=== PATIENT | female | born 1955 | race Caucasian/White ===

== ENCOUNTER 2021-11-16 10:28 | Emergency (ER) | payer MEDICARE ==
[2021-11-16] MEDS ORDERED: KETOROLAC 60 MG/2 ML VIAL IM STA (12:14)
--- NOTE | 2021-11-16 12:17 | ED Physician Documentation ---
PD HPI BACK PAIN - Stated complaint Stated Complaint: BACK PX - Chief complaint Chief Complaint: Back Pain - History obtained from History obtained from: Patient - Additional information Additional information: 66-year-old woman with history of back problems, had an L3-L4 fusion and discectomy about 3 years ago. In July she fell and has had increasing back pain ever since. It is severe low back pain with pain radiating into the right leg and tingling in the right leg. There is no associated saddle anesthesia, fevers, or incontinence. She had an MRI a few weeks ago which demonstrated: 1. Large right paracentral disc extrusion with resultant severe canal stenosis at L4-L5 2. Severe bilateral foraminal stenosis at L4-L5 with flattening of the exiting nerve roots 3. Moderate bilateral L3-L4 and L1-L2 foraminal stenosis and moderate left L2- L3 foraminal stenosis 4. 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 Review of Systems Constitutional: denies: Fever, Chills Nose: reports: Reviewed and negative Cardiac: reports: Reviewed and negative Respiratory: reports: Reviewed and negative PD PAST MEDICAL HISTORY - Past Medical History Past Medical History: Yes - Past Surgical History Past Surgical History: Yes Ortho: Rotator cuff repair, Spine surgery - Present Medications Home Medications: Ambulatory Orders Medication Instructions Recorded Confirmed Oxycodone HCl/Acetaminophen 1 each PO Q4H PRN #30 tablet 11/16/21 [Oxycodone-Acetaminophen 10-300] - Allergies Allergies/Adverse Reactions: Allergies Allergy/AdvReac Type Severity Reaction Status Date / Time iodine Allergy Unknown Verified 11/16/21 10:56 vancomycin Allergy Unknown Verified 11/16/21 10:55 - Social History Does the pt smoke?: No Smoking Status: Never smoker - Immunizations Immunizations are current?: Yes PD ED PE NORMAL - Vitals Vital signs reviewed: Yes - General General: Alert and oriented X 3, No acute distress - HEENT HEENT: PERRL, EOMI - Back Back: No CVA TTP, Other (She has some tenderness of the low lumbar spine, she moves comfortably though. I am unable to check reflexes at the knees due to prior TKR bilaterally. Intact sensation throughout the legs. Normal gait.) - Neuro Neuro: Alert and oriented X 3, Normal speech Results - Vitals Vitals: Vital Signs - 24 hr 11/16/21 10:38 Temperature 37 C Heart Rate 91 Respiratory 20 Rate Blood Pressure 133/88 H O2 Saturation 99 PD MEDICAL DECISION MAKING - ED course ED course: 66-year-old woman presents with severe low back pain and MRI as above. She has an appointment with the back surgeon next week which is of course very appropriate but needs increase in pain management in the interim. There is no clinical sign of acute cauda equina syndrome and she walks normally with minimal findings on neurologic exam. I am prescribing a short course of short-acting opioid pain medication for this patient. I have reviewed the patients THERAPEUTIC SPECIALIST and no concerning findings were noted. I have discussed that the opioids are for short term therapy only, and will not be refilled from the ED. Departure - Departure Disposition: Home, Self Care Clinical Impression: Spinal stenosis, Lumbar radiculopathy Condition: Good Record reviewed to determine appropriate education?: Yes Instructions: ED Sciatica Prescriptions: Oxycodone HCl/Acetaminophen [Oxycodone-Acetaminophen 10-300] 1 each PO Q4H PRN #30 tablet PRN Reason: Pain Comments: Keep the appoint with the back surgeon next week, I sent your prescriptions electronically to [facility] in [place]. I am prescribing a short course of narcotic pain medication for you. These are potentially dangerous and addictive medications that should be used carefully. These medications may constipate you. Take an cgpu-yba-xnjepyo stool softener (docusate) twice daily with plenty of water while taking these medications. If you go 24 hours without a bowel movement, take [id number] miralax, per package instructions. Do not drink or drive while taking these medications. If you received narcotic or sedating medications while in the emergency department, do not drive for 24 hours. Store this medication in a safe, secure place and out of reach of children. It is a violation of federal law to give or sell this medication to another person or to use in a manner other than prescribed. The ED will not refill narcotic prescriptions, including prescriptions lost or stolen. To dispose of unwanted medications: 1. [facility] at [address] in [place] has a medication drop box. They accept prescription medications (in pill form) Friday through Friday 9:00 a.m. to 5:00 p.m. 2. The [facility] [employer] accepts prescription medications (in pill form only) for disposal year round. Call for more information. 3. Contact the [facility] for the next [facility] sponsored prescription drug collection event. , [phone], or [phone]; Note that many narcotic pain relievers also contain Tylenol/acetaminophen. Please ensure that your total dose of acetaminophen from all sources does not exceed 3 g (3000 mg) per day.
[2021-11-16 12:46] VITALS: BP 149/60
== END 2021-11-16 12:45 | disposition home or self-care (01) ==
LOC: ED 10:28
DX: M48.061 Spinal stenosis, lumbar region without neurogenic claudication (principal); M54.16 Radiculopathy, lumbar region
CPT/HCPCS: 96372; 99283

== ENCOUNTER 2021-11-20 10:29 | Emergency (ER) | payer MEDICARE ==
[2021-11-20 10:48] VITALS: BP 155/78
[2021-11-20] MEDS ORDERED: KETOROLAC 60 MG/2 ML VIAL IM STA (12:04)
--- NOTE | 2021-11-20 12:07 | ED Physician Documentation ---
History of Present Illness - Stated complaint Stated Complaint: BACK PX - Chief complaint Chief Complaint: Back Pain - Additonal information Additional information: 66-year-old female return to the emergency department with uncontrolled right lower back pain with radiation to the right leg. She does have a history of chronic back pain as well as fibromyalgia. She does have a history of an L3-4 discectomy and fusion about 3 years ago. She had a fall in July 2021 and since then she has had worsening back pain. She did have an MRI a few weeks ago And I have reviewed those results. She is also on high-dose gabapentin, anti-inflammatories and typically taking 3 5 mg oxycodone a day. She is scheduled to see back surgeon Dr. German in 48 hours time. She is hoping that a dose of Toradol can be given to her today as she found this effective a few days ago. No fevers. No saddle anesthesia, no loss of bowel or bladder function. Review of Systems Constitutional: denies: Fever, Chills Nose: reports: Reviewed and negative Throat: reports: Reviewed and negative Respiratory: reports: Reviewed and negative Skin: reports: Reviewed and negative Musculoskeletal: reports: Back pain Neurologic: reports: Reviewed and negative Psychiatric: reports: Reviewed and negative Endocrine: reports: Reviewed and negative Immunocompromised: reports: Reviewed and negative PD PAST MEDICAL HISTORY - Past Surgical History Past Surgical History: Yes Ortho: Rotator cuff repair, Spine surgery - Present Medications Home Medications: Ambulatory Orders Medication Instructions Recorded Confirmed Oxycodone HCl/Acetaminophen 1 each PO Q4H PRN #30 tablet 11/16/21 [Oxycodone-Acetaminophen 10-300] - Allergies Allergies/Adverse Reactions: Allergies Allergy/AdvReac Type Severity Reaction Status Date / Time iodine Allergy Unknown Verified 11/20/21 10:40 vancomycin Allergy Unknown Verified 11/20/21 10:40 - Social History Does the pt smoke?: No Smoking Status: Never smoker - Immunizations Immunizations are current?: Yes PD ED PE EXPANDED - General General: Alert, In Pain - Cardiac Cardiac: Regular Rate - Back Back: Straight leg raise + L, Other (Lower lumbar midline tenderness. No CVA tenderness. Reports reduced sensation right lateral leg. Positive straight leg exam on the right. Antalgic gait. Does not allow reflex testing given pain and inability to sit in appropriate position). No: CVA TTP right, CVA TTP left - Neuro Neuro: Alert and Oriented X 3, CNII-XII intact - GCS Eye Opening: Spontaneous Motor: Obeys Commands Verbal: Oriented Total: 15 Results - Vitals Vitals: Vital Signs - 24 hr 11/20/21 10:40 Temperature 36.8 C Heart Rate 86 Respiratory 19 Rate Blood Pressure 155/78 H O2 Saturation 100 Oxygen O2 Source Room air PD MEDICAL DECISION MAKING - ED course Complexity details: reviewed old records, reviewed results, re-evaluated patient, d/w patient ED course: 66-year-old female presents to the emergency department today again with low back pain. Recently underwent MRI imaging. I have reviewed those results. She is scheduled to see Dr. German back pain specialist/surgeon in 48 hours time. She was seen by my colleague about 72 hours ago and discharged with prescription for oxycodone. She states that it has not been helpful. She cannot find any position of comfort. On exam no cauda equina and she is ambulatory though she has an antalgic gait. She is not requesting repeat opiate dosing but is requesting Toradol as she found that helpful. We discussed that there were limited interventions available for further pain management in the emergency department she understands this. She will be discharged home. States that she has a 0 gravity chair being delivered tonight which she is hopeful will improve her symptoms until she is able to see the back pain specialist. Otherwise emergent return precautions discussed Departure - Departure Disposition: 01 Home, Self Care Clinical Impression: Chronic low back pain with sciatica Qualifiers: Back pain laterality: unspecified Sciatica laterality: sciatica of right side Qualified Code(s): M54.41 - Lumbago with sciatica, right side; G89.29 - Other chronic pain Condition: Stable Record reviewed to determine appropriate education?: Yes Comments: Laly I hope that you are finding some relief of the symptoms with the Toradol. You can continue to use the oxycodone at home. I do recommend that you continue very close follow-up within the next [address] German. If at any point you have loss of sensation in your genital area, lose control of the ability to control your bowel or bladder function then you should return immediately to the ER.
== END 2021-11-20 12:49 | disposition home or self-care (01) ==
LOC: ED 10:29
DX: M54.41 Lumbago with sciatica, right side (principal)
CPT/HCPCS: 96372; 99282; 99283

== ENCOUNTER 2022-07-31 16:33 | Emergency (ER) | payer MEDICARE ==
[2022-07-31 16:42] VITALS: BP 161/89
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
--- OUTSIDE RECORDS SUMMARY | 2022-07-31 17:06 | EXTERNAL MEDICAL SUMMARY RPT | Continuity of Care Document ---
:1955 Author Organization [facility] Address [address] [place] [address] Phone Care Team Providers Name Role Phone Unavailable Unavailable Unavailable Filipe Montes Unavailable Unavailable Allergies and Intolerances date description facility type (no date) Iodinated Contrast Media [facility] ([facility] (no date) rifampin [facility] (unknown) (no date) vancomycin [facility] (unknown) Encounters No information. Functional Status No information. Immunizations No information. Medications date description facility 2022-06-03 00:00 Promethazine [facility] Problems date description facility 2022-06-04 14:31 Noninfective gastroenteritis and coliti s, [facility] unspecified Procedures No information. Results/Labs test date author facility value unit interpret ation Result panel 1 (unknown[facility] (no [facility] Result panel 2 (unknown) (no date) (unknown[facility]) Result panel 3 (unknown) (no date) (unknown[facility] Result panel 4 (unknown) (no date) (unknown[facility]) Result panel 5 (unknown) (no date) (unknown[facility] Result panel 6 (unknown) (no date) (unknown[facility]) Result panel 7 (unknown) (no date) (unknown[facility]) Result panel 8 (unknown) (no date) (unknown[facility]) Result panel 9 (unknown) (no date) (unknown[facility]) Result panel 10 (unknown) (no date) (unknown[facility]) Result panel 11 (unknown) (no date) (unknown[facility]) Result panel 12 (unknown) (no date) (unknown[facility]) Result panel 13 (unknown) (no date) (unknown[facility]) Result panel 14 (unknown) (no date) (unknown[facility]) Result panel 15 (unknown) (no date) (unknown[facility]) Result panel 16 (unknown) (no date) (unknown[facility]) Result panel 17 (unknown) (no date) (unknown[facility]) Result panel 18 (unknown) (no date) (unknown[facility]) Result panel 19 (unknown) (no date) (unknown[facility]) Result panel 20 (unknown) (no date) (unknown[facility]) Result panel 21 (unknown) (no date) (unknown[facility]) Result panel 22 (unknown) (no date) (unknown[facility]) Result panel 23 (unknown) (no date) (unknown[facility]) Result panel 24 (unknown) (no date) (unknown[facility]) Result panel 25 (unknown) (no date) (unknown[facility]) Result panel 26 (unknown) (no date) (unknown[facility]) Result panel 27 (unknown) (no date) (unknown[facility]) Result panel 28 (unknown) (no date) (unknown[facility]) Result panel 29 (unknown) (no date) (unknown[facility]) Result panel 30 (unknown) (no date) (unknown[facility]) Result panel 31 (unknown) (no date) (unknown[facility]) Result panel 32 (unknown) (no date) (unknown[facility]) Result panel 33 (unknown) (no date) (unknown[facility]) Result panel 34 (unknown) (no date) (unknown[facility]) Result panel 35 (unknown) (no date) (unknown[facility]) Result panel 36 (unknown) (no date) (unknown[facility]) Result panel 37 (unknown) (no date) (unknown[facility]) Result panel 38 (unknown) (no date) (unknown[facility]) Result panel 39 (unknown) (no date) (unknown[facility]) Result panel 40 (unknown) (no date) (unknown[facility]) Result panel 41 (unknown) (no date) (unknown[facility]) Result panel 42 (unknown) (no date) (unknown[facility]) Result panel 43 (unknown) (no date) (unknown[facility]) Result panel 44 (unknown) (no date) (unknown[facility]) Result panel 45 (unknown) (no date) (unknown[facility]) Result panel 46 (unknown) (no date) (unknown[facility]) Result panel 47 (unknown) (no date) (unknown[facility]) Result panel 48 (unknown) (no date) (unknown[facility]) Result panel 49 (unknown) (no date) (unknown[facility]) Result panel 50 (unknown) (no date) (unknown[facility]) Result panel 51 (unknown) (no date) (unknown) [facility]) Result panel 52 (unknown) (no date) (unknown[facility]) Result panel 53 (unknown) (no date) (unknown) [facility]) Result panel 54 (unknown) (no date) (unknown[facility]) Result panel 55 (unknown) (no date) (unknown[facility]) Result panel 56 (unknown) (no date) (unknown[facility]) Result panel 57 (unknown) (no date) (unknown[facility]) Result panel 58 (unknown) (no date) (unknown[facility]) Result panel 59 (unknown) (no date) (unknown[facility]) Result panel 60 (unknown) (no date) (unknown[facility]) Result panel 61 (unknown) (no date) (unknown[facility]) Result panel 62 (unknown) (no date) (unknown[facility]) Result panel 63 (unknown) (no date) (unknown[facility]) Result panel 64 (unknown) (no date) (unknown[facility]) Result panel 65 (unknown) (no date) (unknown[facility]) Result panel 66 (unknown) (no date) (unknown) [facility]) Result panel 67 (unknown) (no date) (unknown) [facility]) Result panel 68 (unknown) (no date) (unknown[facility]) Result panel 69 (unknown) (no date) (unknown[facility]) Result panel 70 (unknown) (no date) (unknown[facility]) Result panel 71 (unknown) (no date) (unknown) [facility]) Result panel 72 (unknown) (no date) (unknown[facility]) Result panel 73 (unknown) (no date) (unknown[facility]) Result panel 74 (unknown) (no date) (unknown[facility]) Result panel 75 (unknown) (no date) (unknown[facility]) Result panel 76 (unknown) (no date) (unknown[facility]) Result panel 77 (unknown) (no date) (unknown[facility]) Result panel 78 (unknown) (no date) (unknown) [facility]) Result panel 79 (unknown) (no date) (unknown) [facility]) Result panel 80 (unknown) (no date) (unknown[facility]) Result panel 81 (unknown) (no date) (unknown[facility]) Result panel 82 (unknown) (no date) (unknown[facility]) Result panel 83 (unknown) (no date) (unknown[facility]) Result panel 84 (unknown) (no date) (unknown) [facility]) Result panel 85 (unknown) (no date) (unknown[facility]) Result panel 86 (unknown) (no date) (unknown[facility]) Result panel 87 (unknown) (no date) (unknown[facility]) Result panel 88 (unknown) (no date) (unknown[facility]) Result panel 89 (unknown) (no date) (unknown[facility]) Result panel 90 (unknown) (no date) (unknown[facility]) Result panel 91 (unknown) (no date) (unknown) [facility]) Result panel 92 (unknown) (no date) (unknown[facility]) Result panel 93 (unknown) (no date) (unknown) [facility]) Result panel 94 (unknown) (no date) (unknown[facility]) Result panel 95 (unknown) (no date) (unknown[facility]) Result panel 96 (unknown) (no date) (unknown[facility]) Result panel 97 (unknown) (no date) (unknown[facility]) Result panel 98 (unknown) (no date) (unknown[facility]) Result panel 99 (unknown) (no date) (unknown[facility]) Result panel 100 (unknown) (no date) (unknown[facility]) Result panel 101 (unknown) (no date) (unknown[facility]) Result panel 102 (unknown) (no date) (unknown[facility]) Result panel 103 (unknown) (no date) (unknown[facility]) Result panel 104 (unknown) (no date) (unknown[facility]) Result panel 105 (unknown) (no date) (unknown[facility]) Result panel 106 (unknown) (no date) (unknown[facility]) Result panel 107 (unknown) (no date) (unknown[facility]) Result panel 108 (unknown) (no date) (unknown[facility]) Result panel 109 (unknown) (no date) (unknown[facility]) Result panel 110 (unknown) (no date) (unknown[facility]) Result panel 111 (unknown) (no date) (unknown) [facility]) Result panel 112 (unknown) (no date) (unknown[facility]) Result panel 113 (unknown) (no date) (unknown[facility]) Result panel 114 (unknown) (no date) (unknown[facility]) Result panel 115 (unknown) (no date) (unknown[facility]) Result panel 116 (unknown) (no date) (unknown) [facility]) Result panel 117 (unknown) (no date) (unknown) [facility]) Result panel 118 (unknown) (no date) (unknown[facility]) Result panel 119 (unknown) (no date) (unknown) [facility]) Result panel 120 (unknown) (no date) (unknown[facility]) Result panel 121 (unknown) (no date) (unknown[facility]) Result panel 122 (unknown) (no date) (unknown[facility]) Result panel 123 (unknown) (no date) (unknown[facility]) Result panel 124 (unknown) (no date) (unknown[facility]) Result panel 125 (unknown) (no date) (unknown[facility]) Result panel 126 (unknown) (no date) (unknown[facility]) Result panel 127 (unknown) (no date) (unknown[facility]) Result panel 128 (unknown) (no date) (unknown[facility]) Result panel 129 (unknown) (no date) (unknown[facility]) Result panel 130 (unknown) (no date) (unknown[facility]) Result panel 131 (unknown) (no date) (unknown[facility]) Result panel 132 (unknown) (no date) (unknown[facility]) Result panel 133 (unknown) (no date) (unknown[facility]) Result panel 134 (unknown) (no date) (unknown[facility]) Result panel 135 (unknown) (no date) (unknown[facility]) Result panel 136 (unknown) (no date) (unknown[facility]) Result panel 137 (unknown) (no date) (unknown[facility]) Result panel 138 (unknown) (no date) (unknown[facility]) Result panel 139 (unknown) (no date) (unknown[facility]) Result panel 140 (unknown) (no date) (unknown[facility]) Result panel 141 (unknown) (no date) (unknown[facility]) Result panel 142 (unknown) (no date) (unknown[facility]) Result panel 143 (unknown) (no date) (unknown[facility]) Result panel 144 (unknown) (no date) (unknown[facility]) Result panel 145 (unknown) (no date) (unknown) [facility]) Result panel 146 (unknown) (no date) (unknown) [facility]) Result panel 147 (unknown) (no date) (unknown) [facility]) Result panel 148 (unknown) (no date) (unknown) [facility]) Result panel 149 (unknown) (no date) (unknown) [facility]) Result panel 150 (unknown) (no date) (unknown) [facility]) Result panel 151 (unknown) (no date) (unknown) [facility]) Result panel 152 (unknown) (no date) (unknown) [facility]) Result panel 153 (unknown) (no date) (unknown) [facility]) Result panel 154 (unknown) (no date) (unknown) [facility]) Result panel 155 (unknown) (no date) (unknown) [facility]) Result panel 156 (unknown) (no date) (unknown) [facility]) Result panel 157 (unknown) (no date) (unknown) [facility]) Result panel 158 (unknown) (no date) (unknown) [facility]) Result panel 159 (unknown) (no date) (unknown) [facility]) Result panel 160 (unknown) (no date) (unknown) [facility]) Result panel 161 (unknown) (no date) (unknown) [facility]) Result panel 162 (unknown) (no date) (unknown) [facility]) Result panel 163 (unknown) (no date) (unknown) [facility]) Result panel 164 (unknown) (no date) (unknown) [facility]) Result panel 165 (unknown) (no date) (unknown) [facility]) Result panel 166 (unknown) (no date) (unknown) [facility]) Result panel 167 (unknown) (no date) (unknown) [facility]) Result panel 168 (unknown) (no date) (unknown) [facility]) Result panel 169 (unknown) (no date) (unknown) [facility]) Result panel 170 (unknown) (no date) (unknown) [facility]) Result panel 171 (unknown) (no date) (unknown) [facility]) Result panel 172 (unknown) (no date) (unknown) [facility]) Result panel 173 (unknown) (no date) (unknown) [facility]) Result panel 174 (unknown) (no date) (unknown) [facility]) Result panel 175 (unknown) (no (unknown) (unknown) (no value) (units (unk nown) date) unknown) (unknown) (no (unknown) (unknown) #120 caps (units (unkn own) date) unknown) (unknown) (no (unknown) (unknown) (Benadryl) (units (unk nown) date) unknown) (unknown) (no (unknown) (unknown) (Lexapro) (units (unkn own) date) unknown) (unknown) (no (unknown) (unknown) 06/03/22 09:14 (units (unknown) date) unknown) (unknown) (no (unknown) (unknown) 06/03/22 09:15 (units (unknown) date) unknown) (unknown) (no (unknown) (unknown) 06/03/22 (units (unkno wn) date) unknown) (unknown) (no (unknown) (unknown) [id number] (units (unkno wn) date) unknown) (unknown) (no (unknown) (unknown) 12/17/21 (units (unkno wn) date) unknown) (unknown) (no (unknown) (unknown) 09:09 (units (unkno wn) date) unknown) (unknown) (no (unknown) (unknown) 1 tab PO BID-TID (units (unknown) date) unknown) (unknown) (no (unknown) (unknown) 1,000 mg PO Q6H (units (unknown) date) PRN (Reason: Pain) unknown) (unknown) (no (unknown) (unknown) 1-2 tabs (5-10mg) (units (unknown) date) q 4H unknown) (unknown) (no (unknown) (unknown) 10 mg PO BEDTIME (units (unknown) date) PRN (Reason: unknown) insomnia) Qty: 14 0RF (unknown) (no (unknown) (unknown) 10 mg PO BEDTIME (units (unknown) date) unknown) (unknown) (no (unknown) (unknown) 100 mg PO BID PRN (units (unknown) date) (Reason: unknown) constipation) Qty: 60 2RF (unknown) (no (unknown) (unknown) 150 mg PO BEDTIME (units (unknown) date) unknown) (unknown) (no (unknown) (unknown) 150 mg PO QAM (units ( unknown) date) unknown) (unknown) (no (unknown) (unknown) 2 mg PO Q3H PRN (units (unknown) date) (Reason: pain, unknown) severe) Qty: 30 0RF (unknown) (no (unknown) (unknown) 20 mg PO DAILY (units (unknown) date) unknown) (unknown) (no (unknown) (unknown) 25 mg PO Q4-6H (units (unknown) date) PRN (Reason: unknown) Nausea) (unknown) (no (unknown) (unknown) 25 mg PO Q4HR PRN (units (unknown) date) (Reason: Muscle unknown) Spasm) Qty: 120 1RF (unknown) (no (unknown) (unknown) 40 mg PO BEDTIME (units (unknown) date) unknown) (unknown) (no (unknown) (unknown) 40 mg PO DAILY (units (unknown) date) unknown) (unknown) (no (unknown) (unknown) 400 mg PO (units (unkn own) date) SEEINSTR unknown) (unknown) (no (unknown) (unknown) 400mg qam, 400mg (units (unknown) date) qpm, 800mg bedtime unknown) (unknown) (no (unknown) (unknown) 5 mg PO Q4H PRN (units (unknown) date) (Reason: pain, unknown) moderate) Qty: 60 0RF (unknown) (no (unknown) (unknown) 50 - 100 mg PO (units (unknown) date) BEDTIME PRN unknown) (Reason: Sleep) (unknown) (no (unknown) (unknown) 500 mg PO BID (units ( unknown) date) unknown) (unknown) (no (unknown) (unknown) 500 mg PO TID PRN (units (unknown) date) (Reason: Muscle unknown) Spasm) Qty: 60 0RF (unknown) (no (unknown) (unknown) 9 mg PO QAM (units (un known) date) unknown) (unknown) (no (unknown) (unknown) Age/Sex: 66 / F (units (unknown) date) unknown) (unknown) (no (unknown) (unknown) Allergies (units (unkn own) date) unknown) (unknown) (no (unknown) (unknown) Allergy/AdvReac (units (unknown) date) Type Severity unknown) Reaction Status Date / Time (unknown) (no (unknown) (unknown) Anxiety (units (unkno wn) date) unknown) (unknown) (no (unknown) (unknown) Bedside Urine (units ( unknown) date) Bilirubin - unknown) Negative (unknown) (no (unknown) (unknown) Bedside Urine (units ( unknown) date) Glucose Negative unknown) (unknown) (no (unknown) (unknown) Bedside Urine (units ( unknown) date) Ketone - Negative unknown) (unknown) (no (unknown) (unknown) Bedside Urine (units ( unknown) date) Leukocytes - unknown) Negative (unknown) (no (unknown) (unknown) Bedside Urine (units ( unknown) date) Nitrite - Negative unknown) (unknown) (no (unknown) (unknown) Bedside Urine (units ( unknown) date) Occult Blood - unknown) Negative (unknown) (no (unknown) (unknown) Bedside Urine (units ( unknown) date) Protein +/- 15 unknown) (unknown) (no (unknown) (unknown) Bedside Urine (units ( unknown) date) Urobilinogen - unknown) Negative (unknown) (no (unknown) (unknown) Bedside Urine pH (units (unknown) date) 7 unknown) (unknown) (no (unknown) (unknown) Blood Pressure (units (unknown) date) 132/79 06/03/22 unknown) 09:09 (unknown) (no (unknown) (unknown) Blood Pressure (units (unknown) date) 132/79 unknown) (unknown) (no (unknown) (unknown) Chief complaint: (units (unknown) date) Nausea/Vomiting/Di unknown) arrhea (unknown) (no (unknown) (unknown) Colitis, (units (unkno wn) date) nonspecific unknown) (unknown) (no (unknown) (unknown) Complete Blood (units (unknown) date) Count AUTO DIFF unknown) Stat (unknown) (no (unknown) (unknown) Comprehensive (units ( unknown) date) Metabolic Panel unknown) Stat (unknown) (no (unknown) (unknown) Course (units (unkno wn) date) unknown) (unknown) (no (unknown) (unknown) : 1955 (units (unknown) date) Acct:[id number] unknown) (unknown) (no (unknown) (unknown) Date of Service: (units (unknown) date) 06/03/22 unknown) (unknown) (no (unknown) (unknown) Departure (units (unkn own) date) unknown) (unknown) (no (unknown) (unknown) Depression (units (unk nown) date) unknown) (unknown) (no (unknown) (unknown) Discharge Plan (units (unknown) date) unknown) (unknown) (no (unknown) (unknown) Documented By: KB (units (unknown) date) unknown) (unknown) (no (unknown) (unknown) ED Orders (units (unkn own) date) unknown) (unknown) (no (unknown) (unknown) EKG-12 Lead Stat (units (unknown) date) unknown) (unknown) (no (unknown) (unknown) ER Physician: (units ( unknown) date) Rene Brooks unknown) D.O. (unknown) (no (unknown) (unknown) Easy bruisability (units (unknown) date) unknown) (unknown) (no (unknown) (unknown) Emergency Report (units (unknown) date) unknown) (unknown) (no (unknown) (unknown) Esterase (units (unkno wn) date) unknown) (unknown) (no (unknown) (unknown) Exam (units (unkno wn) date) unknown) (unknown) (no (unknown) (unknown) Fibromyalgia (units (u nknown) date) unknown) (unknown) (no (unknown) (unknown) General (units (unkno wn) date) unknown) (unknown) (no (unknown) (unknown) HLD (units (unkno wn) date) (hyperlipidemia) unknown) (unknown) (no (unknown) (unknown) HPI - (units (unkno wn) date) Nausea/Vomiting/Di unknown) arrhea (unknown) (no (unknown) (unknown) History of (units (unk nown) date) arthroplasty of unknown) right knee (-2003) (unknown) (no (unknown) (unknown) History of ear (units (unknown) date) surgery unknown) (unknown) (no (unknown) (unknown) History of lumbar (units (unknown) date) spinal fusion unknown) (03/2019) (unknown) (no (unknown) (unknown) History of nasal (units (unknown) date) surgery unknown) (unknown) (no (unknown) (unknown) History of (units (unk nown) date) revision of total unknown) replacement of left knee joint (05/2008) (unknown) (no (unknown) (unknown) History of (units (unk nown) date) revision of total unknown) replacement of right knee joint () (unknown) (no (unknown) (unknown) Home Medications (units (unknown) date) unknown) (unknown) (no (unknown) (unknown) Hx of arthroscopy (units (unknown) date) of right knee unknown) (unknown) (no (unknown) (unknown) Hx of laminectomy (units (unknown) date) () unknown) (unknown) (no (unknown) (unknown) Hx of repair of (units (unknown) date) right rotator cuff unknown) (unknown) (no (unknown) (unknown) 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) unknown) (unknown) (no (unknown) (unknown) Initial Vital (units ( unknown) date) Signs unknown) (unknown) (no (unknown) (unknown) Initial Vital (units ( unknown) date) Signs: unknown) (unknown) (no (unknown) (unknown) Iodinated (units (unkn own) date) Contrast Media unknown) Allergy Mild Rash Verified 12/17/21 12:14 (unknown) (no (unknown) (unknown) [facility] (units (unknown) date) [address]) [place] [address] (unknown) (no (unknown) (unknown) Lab Data (units (unkno wn) date) unknown) (unknown) (no (unknown) (unknown) Label Comments: (units (unknown) date) unknown) (unknown) (no (unknown) (unknown) Labs: (units (unkno wn) date) unknown) (unknown) (no (unknown) (unknown) Last Admin: (units (un known) date) 06/03/22 09:32 unknown) Dose: 4 mg (unknown) (no (unknown) (unknown) Lipase Stat (units (un known) date) unknown) (unknown) (no (unknown) (unknown) Loose left total (units (unknown) date) knee arthroplasty unknown) (2003) (unknown) (no (unknown) (unknown) MDM - (units (unkno wn) date) Nausea/Vomiting/Di unknown) arrhea (unknown) (no (unknown) (unknown) MRSA (methicillin (units (unknown) date) resistant unknown) Staphylococcus aureus) (unknown) (no (unknown) (unknown) Allison Vasquez, (units (unknown) date) PA-C [Primary Care unknown) Provider] (unknown) (no (unknown) (unknown) Medical History (units (unknown) date) (Reviewed 12/24/21 unknown) @ 01:23 by Desean Jiménez MD) (unknown) (no (unknown) (unknown) Medication (units (unk nown) date) Instructions unknown) Recorded Confirmed (unknown) (no (unknown) (unknown) Medication (units (unk nown) date) Instructions unknown) Recorded (unknown) (no (unknown) (unknown) Mode of arrival: (units (unknown) date) Ambulatory unknown) (unknown) (no (unknown) (unknown) No Action (units (unkn own) date) unknown) (unknown) (no (unknown) (unknown) Ondansetron HCl (units (unknown) date) (Ondansetron 4 Mg unknown) Odt) 4 mg PO NOW PRN (unknown) (no (unknown) (unknown) Ondansetron HCl (units (unknown) date) (Ondansetron 4 unknown) Mg/2 Ml Inj) 4 mg IV NOW PRN (unknown) (no (unknown) (unknown) Ordered: (units (unkno wn) date) unknown) (unknown) (no (unknown) (unknown) Orders (units (unkno wn) date) unknown) (unknown) (no (unknown) (unknown) Oxygen Delivery (units (unknown) date) Method 06/03/22 unknown) 09:09 (unknown) (no (unknown) (unknown) Oxygen Delivery (units (unknown) date) Method Room Air unknown) (unknown) (no (unknown) (unknown) PRN Reason: (units (un known) date) Nausea And unknown) Vomiting (unknown) (no (unknown) (unknown) PTSD (units (unkno wn) date) (post-traumatic unknown) stress disorder) (unknown) (no (unknown) (unknown) Patient History (units (unknown) date) unknown) (unknown) (no (unknown) (unknown) Patient: (units (unkno wn) date) Laly Miranda unknown) MR#: [id number] (unknown) (no (unknown) (unknown) Prescriptions: (units (unknown) date) unknown) (unknown) (no (unknown) (unknown) Previous Rx's (units ( unknown) date) unknown) (unknown) (no (unknown) (unknown) Pulse Oximetry (units (unknown) date) 100 06/03/22 09:09 unknown) (unknown) (no (unknown) (unknown) Pulse Oximetry (units (unknown) date) 100 unknown) (unknown) (no (unknown) (unknown) Pulse Rate 85 (units ( unknown) date) 06/03/22 09:09 unknown) (unknown) (no (unknown) (unknown) Pulse Rate 85 (units ( unknown) date) unknown) (unknown) (no (unknown) (unknown) Referrals: (units (unk nown) date) unknown) (unknown) (no (unknown) (unknown) Related Data (units (u nknown) date) unknown) (unknown) (no (unknown) (unknown) Respiratory Rate (units (unknown) date) 18 06/03/22 09:09 unknown) (unknown) (no (unknown) (unknown) Respiratory Rate (units (unknown) date) 18 unknown) (unknown) (no (unknown) (unknown) Rx Instructions: (units (unknown) date) unknown) (unknown) (no (unknown) (unknown) Sciatica (units (unkno wn) date) unknown) (unknown) (no (unknown) (unknown) Signed By: (units (unk nown) date) unknown) (unknown) (no (unknown) (unknown) Smoking Status: (units (unknown) date) Former smoker unknown) (unknown) (no (unknown) (unknown) Social History (units (unknown) date) (Reviewed 12/23/21 unknown) @ 20:22 by Amena Aviles DO) (unknown) (no (unknown) (unknown) Source: patient (units (unknown) date) unknown) (unknown) (no (unknown) (unknown) Spinal stenosis (units (unknown) date) unknown) (unknown) (no (unknown) (unknown) Stated complaint: (units (unknown) date) throwing up since unknown) (unknown) (no (unknown) (unknown) Substance Use (units ( unknown) date) Type: marijuana unknown) (unknown) (no (unknown) (unknown) Surgical History (units (unknown) date) (Reviewed 12/24/21 unknown) @ 01:23 by Desean Jiménez MD) (unknown) (no (unknown) (unknown) Temperature 98 F (units (unknown) date) 06/03/22 09:09 unknown) (unknown) (no (unknown) (unknown) Temperature 98 F (units (unknown) date) unknown) (unknown) (no (unknown) (unknown) Time Seen by (units (u nknown) date) Provider: 06/03/22 unknown) 10:36 (unknown) (no (unknown) (unknown) Urine Dip (units (unkn own) date) unknown) (unknown) (no (unknown) (unknown) Urine Microscopic (units (unknown) date) Stat unknown) (unknown) (no (unknown) (unknown) Urine Specific (units (unknown) date) Quentin 1.015 unknown) (unknown) (no (unknown) (unknown) Vital Signs - 8 (units (unknown) date) hr unknown) (unknown) (no (unknown) (unknown) Vital Signs (units (un known) date) unknown) (unknown) (no (unknown) (unknown) Vital signs: (units (u nknown) date) unknown) (unknown) (no (unknown) (unknown) acetaminophen 500 (units (unknown) date) mg Capsule unknown) (unknown) (no (unknown) (unknown) acetaminophen 500 (units (unknown) date) mg capsule 1,000 unknown) mg PO Q6H PRN Pain 12/07/21 12/23/21 (unknown) (no (unknown) (unknown) alcohol intake (units (unknown) date) frequency: unknown) holidays/special occasions only (unknown) (no (unknown) (unknown) alcohol intake: (units (unknown) date) former unknown) (unknown) (no (unknown) (unknown) budesonide 3 mg 9 (units (unknown) date) mg PO QAM 12/07/21 unknown) 12/23/21 (unknown) (no (unknown) (unknown) budesonide 3 mg (units (unknown) date) Capsule,Delayed,Ex unknown) tend.Release (unknown) (no (unknown) (unknown) bupropion HCl 300 (units (unknown) date) mg 24 hr tablet, unknown) 150 mg PO QAM 12/07/21 12/23/21 (unknown) (no (unknown) (unknown) bupropion HCl 300 (units (unknown) date) mg Tablet Extended unknown) Release 24 Hr (unknown) (no (unknown) (unknown) caps (units (unkno wn) date) unknown) (unknown) (no (unknown) (unknown) capsule,delayed (units (unknown) date) release unknown) (unknown) (no (unknown) (unknown) capsule,delayed,e (units (unknown) date) xtended release unknown) (unknown) (no (unknown) (unknown) diphenhydramine (units (unknown) date) HCl 25 mg capsule unknown) 50 - 100 mg PO BEDTIME PRN Sleep 12/10/21 (unknown) (no (unknown) (unknown) diphenhydramine (units (unknown) date) HCl [Benadryl] 25 unknown) mg Capsule (unknown) (no (unknown) (unknown) docusate sodium (units (unknown) date) 100 mg Capsule unknown) (unknown) (no (unknown) (unknown) docusate sodium (units (unknown) date) 100 mg capsule 100 unknown) mg PO BID PRN constipation #60 12/20/21 (unknown) (no (unknown) (unknown) escitalopram (units (u nknown) date) oxalate 20 mg unknown) tablet 20 mg PO DAILY 12/07/21 12/23/21 (unknown) (no (unknown) (unknown) escitalopram (units (u nknown) date) oxalate [Lexapro] unknown) 20 mg Tablet (unknown) (no (unknown) (unknown) esomeprazole (units (u nknown) date) magnesium 20 mg 40 unknown) mg PO DAILY 12/07/21 12/17/21 (unknown) (no (unknown) (unknown) esomeprazole (units (u nknown) date) magnesium 20 mg unknown) Capsule,Delayed Release(Dr/Ec) (unknown) (no (unknown) (unknown) extended release (units (unknown) date) unknown) (unknown) (no (unknown) (unknown) gabapentin 400 mg (units (unknown) date) Capsule unknown) (unknown) (no (unknown) (unknown) gabapentin 400 mg (units (unknown) date) capsule 400 mg PO unknown) SEEINSTR 12/07/21 12/23/21 (unknown) (no (unknown) (unknown) household (units (unkn own) date) members: none unknown) (unknown) (no (unknown) (unknown) hydromorphone 2 (units (unknown) date) mg Tablet unknown) (unknown) (no (unknown) (unknown) hydromorphone 2 (units (unknown) date) mg tablet 2 mg PO unknown) Q3H PRN pain, severe #30 12/20/21 (unknown) (no (unknown) (unknown) hydroxyzine (units (un known) date) pamoate 25 mg unknown) Capsule (unknown) (no (unknown) (unknown) hydroxyzine (units (un known) date) pamoate 25 mg unknown) capsule 25 mg PO Q4HR PRN Muscle Spasm 12/20/21 (unknown) (no (unknown) (unknown) methocarbamol 500 (units (unknown) date) mg Tablet unknown) (unknown) (no (unknown) (unknown) methocarbamol 500 (units (unknown) date) mg tablet 500 mg unknown) PO TID PRN Muscle Spasm #60 12/20/21 (unknown) (no (unknown) (unknown) mg tablet (units (unkn own) date) unknown) (unknown) (no (unknown) (unknown) oxycodone 5 mg (units (unknown) date) tablet 5 mg PO Q4H unknown) PRN pain, moderate #60 12/20/21 (unknown) (no (unknown) (unknown) oxycodone 5 mg (units (unknown) date) tablet unknown) (unknown) (no (unknown) (unknown) oxycodone-acetami (units (unknown) date) nophen 10 mg-325 1 unknown) tab PO BID-TID 12/07/21 12/23/21 (unknown) (no (unknown) (unknown) oxycodone-acetami (units (unknown) date) nophen 10-325 mg unknown) Tablet (unknown) (no (unknown) (unknown) promethazine 25 (units (unknown) date) mg Tablet unknown) (unknown) (no (unknown) (unknown) promethazine 25 (units (unknown) date) mg tablet 25 mg PO unknown) Q4-6H PRN Nausea 12/07/21 12/23/21 (unknown) (no (unknown) (unknown) rifampin Allergy (units (unknown) date) Mild Rash Verified unknown) 12/17/21 12:14 (unknown) (no (unknown) (unknown) simvastatin 40 mg (units (unknown) date) Tablet unknown) (unknown) (no (unknown) (unknown) simvastatin 40 mg (units (unknown) date) tablet 40 mg PO unknown) BEDTIME 12/07/21 12/23/21 (unknown) (no (unknown) (unknown) tabs (units (unkno wn) date) unknown) (unknown) (no (unknown) (unknown) trazodone 150 mg (units (unknown) date) Tablet unknown) (unknown) (no (unknown) (unknown) trazodone 150 mg (units (unknown) date) tablet 150 mg PO unknown) BEDTIME 12/07/21 12/23/21 (unknown) (no (unknown) (unknown) valacyclovir 500 (units (unknown) date) mg Tablet unknown) (unknown) (no (unknown) (unknown) valacyclovir 500 (units (unknown) date) mg tablet 500 mg unknown) PO BID 12/07/21 12/23/21 (unknown) (no (unknown) (unknown) vancomycin (units (unk nown) date) Allergy Mild Rash unknown) Verified 12/17/21 12:14 (unknown) (no (unknown) (unknown) zolpidem 10 mg (units (unknown) date) tablet (Ambien) 10 unknown) mg PO BEDTIME 12/07/21 12/17/21 (unknown) (no (unknown) (unknown) zolpidem 10 mg (units (unknown) date) tablet 10 mg PO unknown) BEDTIME PRN insomnia #14 12/20/21 (unknown) (no (unknown) (unknown) zolpidem 10 mg (units (unknown) date) tablet unknown) (unknown) (no (unknown) (unknown) zolpidem [Ambien] (units (unknown) date) 10 mg Tablet unknown) Result panel 176 (unknown) (no date) (unknown) (unknown) 0-1 /HPF (units (unkn own) unknown) (unknown) (no date) (unknown) (unknown) 1 (units (unkn own) unknown) (unknown) (no date) (unknown) (unknown) 1-5/HPF (units (unkn own) unknown) (unknown) (no date) (unknown) (unknown) Cult Not (units (unkn own) Indicated unknown) (unknown) (no date) (unknown) (unknown) Few (2-10) (units (un known) unknown) (unknown) (no date) (unknown) (unknown) None Seen (units (unk nown) unknown) (unknown) (no date) (unknown) (unknown) None Seen (units (unk nown) unknown) Result panel 177 (unknown) (no date) (unknown) (unknown) 0 /ul (unkn own) (unknown) (no date) (unknown) (unknown) 0.4 % (unkn own) (unknown) (no date) (unknown) (unknown) 1.7 % (unkn own) (unknown) (no date) (unknown) (unknown) 100 /ul (unkn own) (unknown) (no date) (unknown) (unknown) 11.7 g/dl (unkn own) (unknown) (no date) (unknown) (unknown) 1400 /ul (unkn own) (unknown) (no date) (unknown) (unknown) 16.3 % (unkn own) (unknown) (no date) (unknown) (unknown) 16.6 % (unkn own) (unknown) (no date) (unknown) (unknown) 27.0 pg (unkn own) (unknown) (no date) (unknown) (unknown) 282 x10 3/ul (unkn own) (unknown) (no date) (unknown) (unknown) 32.9 % (unkn own) (unknown) (no date) (unknown) (unknown) 35.7 % (unkn own) (unknown) (no date) (unknown) (unknown) 4.34 x10 6/ul (unkn own) (unknown) (no date) (unknown) (unknown) 6000 /ul (unkn own) (unknown) (no date) (unknown) (unknown) 700 /ul (unkn own) (unknown) (no date) (unknown) (unknown) 72.9 % (unkn own) (unknown) (no date) (unknown) (unknown) 8.2 x10 3/ul (unkn own) (unknown) (no date) (unknown) (unknown) 8.4 % (unkn own) (unknown) (no date) (unknown) (unknown) 82.3 fl (unkn own) Result panel 178 (unknown) (no date) (unknown) (unknown) > 60 ml/min (unkn own) (unknown) (no date) (unknown) (unknown) > 60 ml/min (unkn own) (unknown) (no date) (unknown) (unknown) 0.4 mg/dl (unkn own) (unknown) (no date) (unknown) (unknown) 0.86 mg/dl (unkn own) (unknown) (no date) (unknown) (unknown) 1.6 (units (unkn own) unknown) (unknown) (no date) (unknown) (unknown) 100 mmol/l (unkn own) (unknown) (no date) (unknown) (unknown) 104 mg/dl (unkn own) (unknown) (no date) (unknown) (unknown) 104 mg/dl (unkn own) (unknown) (no date) (unknown) (unknown) 11 mg/dl (unkn own) (unknown) (no date) (unknown) (unknown) 12.8 (units (unkn own) unknown) (unknown) (no date) (unknown) (unknown) 13 iu/l (unkn own) (unknown) (no date) (unknown) (unknown) 137 mmol/l (unkn own) (unknown) (no date) (unknown) (unknown) 2.7 g/dl (unkn own) (unknown) (no date) (unknown) (unknown) 23 iu/l (unkn own) (unknown) (no date) (unknown) (unknown) 27 mmol/l (unkn own) (unknown) (no date) (unknown) (unknown) 4.1 mmol/l (unkn own) (unknown) (no date) (unknown) (unknown) 4.3 g/dl (unkn own) (unknown) (no date) (unknown) (unknown) 51 u/l (unkn own) (unknown) (no date) (unknown) (unknown) 56 u/l (unkn own) (unknown) (no date) (unknown) (unknown) 7.0 g/dl (unkn own) (unknown) (no date) (unknown) (unknown) 78 u/l (unkn own) (unknown) (no date) (unknown) (unknown) 9.3 mg/dl (unkn own) (unknown) (no date) (unknown) (unknown) Test not % (unkn own) performed (unknown) (no date) (unknown) (unknown) Test not % (unkn own) performed (unknown) (no date) (unknown) (unknown) Test not ng/ml (unkn own) performed (unknown) (no date) (unknown) (unknown) Test not ng/ml (unkn own) performed Result panel 179 (unknown) (no date) (unknown) (unknown) < 0.012 ng/ml (unkn own) (unknown) (no date) (unknown) (unknown) < 0.012 ng/ml (unkn own) (unknown) (no date) (unknown) (unknown) 51 u/l (unkn own) (unknown) (no date) (unknown) (unknown) Test not % (unkn own) performed (unknown) (no date) (unknown) (unknown) Test not % (unkn own) performed (unknown) (no date) (unknown) (unknown) Test not ng/ml (unkn own) performed (unknown) (no date) (unknown) (unknown) Test not ng/ml (unkn own) performed Result panel 180 (unknown) (no (unknown) (unknown) (no value) (units (unk nown) date) unknown) (unknown) (no (unknown) (unknown) #120 caps (units (unkn own) date) unknown) (unknown) (no (unknown) (unknown) <Electronically (units (unknown) date) signed by Rene unknownRanjit Brooks D.O.> (unknown) (no (unknown) (unknown) (Benadryl) (units (unk nown) date) unknown) (unknown) (no (unknown) (unknown) (Lexapro) (units (unkn own) date) unknown) (unknown) (no (unknown) (unknown) 06/03/22 06/03/22 (units (unknown) date) 06/03/22 unknown) Range/Units (unknown) (no (unknown) (unknown) 06/03/22 10:30 (units (unknown) date) unknown) (unknown) (no (unknown) (unknown) 06/03/22 13:12 (units (unknown) date) unknown) (unknown) (no (unknown) (unknown) 06/03/22 1916 (units ( unknown) date) unknown) (unknown) (no (unknown) (unknown) 06/03/22 (units (unkno wn) date) Range/Units unknown) (unknown) (no (unknown) (unknown) 06/03/22 (units (unkno wn) date) unknown) (unknown) (no (unknown) (unknown) [id number] (units (unkno wn) date) unknown) (unknown) (no (unknown) (unknown) 12/17/21 (units (unkno wn) date) unknown) (unknown) (no (unknown) (unknown) 09:15 10:30 10:30 (units (unknown) date) unknown) (unknown) (no (unknown) (unknown) 1 tab PO BID-TID (units (unknown) date) unknown) (unknown) (no (unknown) (unknown) 1,000 mg PO Q6H (units (unknown) date) PRN (Reason: Pain) unknown) (unknown) (no (unknown) (unknown) 1-2 tabs (5-10mg) (units (unknown) date) q 4H unknown) (unknown) (no (unknown) (unknown) 10 mg PO BEDTIME (units (unknown) date) PRN (Reason: unknown) insomnia) Qty: 14 0RF (unknown) (no (unknown) (unknown) 10 mg PO BEDTIME (units (unknown) date) unknown) (unknown) (no (unknown) (unknown) 100 mg PO BID PRN (units (unknown) date) (Reason: unknown) constipation) Qty: 60 2RF (unknown) (no (unknown) (unknown) 10:30 (units (unkno wn) date) unknown) (unknown) (no (unknown) (unknown) 12:16 06/03/22 (units (unknown) date) unknown) (unknown) (no (unknown) (unknown) 12:30 06/03/22 (units (unknown) date) unknown) (unknown) (no (unknown) (unknown) 12:30 (units (unkno wn) date) unknown) (unknown) (no (unknown) (unknown) 13:00 06/03/22 (units (unknown) date) unknown) (unknown) (no (unknown) (unknown) 13:00 (units (unkno wn) date) unknown) (unknown) (no (unknown) (unknown) 150 mg PO BEDTIME (units (unknown) date) unknown) (unknown) (no (unknown) (unknown) 150 mg PO QAM (units ( unknown) date) unknown) (unknown) (no (unknown) (unknown) 2 mg PO Q3H PRN (units (unknown) date) (Reason: pain, unknown) severe) Qty: 30 0RF (unknown) (no (unknown) (unknown) 20 mg PO DAILY (units (unknown) date) unknown) (unknown) (no (unknown) (unknown) 25 mg PO Q4-6H PRN (units (unknown) date) (Reason: Nausea) unknown) (unknown) (no (unknown) (unknown) 25 mg PO Q4-6H PRN (units (unknown) date) (Reason: nausea and unknown) vomiting) Qty: 14 0RF (unknown) (no (unknown) (unknown) 25 mg PO Q4HR PRN (units (unknown) date) (Reason: Muscle unknown) Spasm) Qty: 120 1RF (unknown) (no (unknown) (unknown) 40 mg PO BEDTIME (units (unknown) date) unknown) (unknown) (no (unknown) (unknown) 40 mg PO DAILY (units (unknown) date) unknown) (unknown) (no (unknown) (unknown) 400 mg PO SEEINSTR (units (unknown) date) unknown) (unknown) (no (unknown) (unknown) 400mg qam, 400mg (units (unknown) date) qpm, 800mg bedtime unknown) (unknown) (no (unknown) (unknown) 5 mg PO Q4H PRN (units (unknown) date) (Reason: pain, unknown) moderate) Qty: 60 0RF (unknown) (no (unknown) (unknown) 50 - 100 mg PO (units (unknown) date) BEDTIME PRN unknown) (Reason: Sleep) (unknown) (no (unknown) (unknown) 500 mg PO BID (units ( unknown) date) unknown) (unknown) (no (unknown) (unknown) 500 mg PO TID PRN (units (unknown) date) (Reason: Muscle unknown) Spasm) Qty: 60 0RF (unknown) (no (unknown) (unknown) 66-year-old female (units (unknown) date) who arrives the unknown) emergency department today stating that she (unknown) (no (unknown) (unknown) 9 mg PO QAM (units (un known) date) unknown) (unknown) (no (unknown) (unknown) ALT (<35) IU/L (units (unknown) date) unknown) (unknown) (no (unknown) (unknown) ALT 13 (<35) IU/L (units (unknown) date) unknown) (unknown) (no (unknown) (unknown) AST (14-36) IU/L (units (unknown) date) unknown) (unknown) (no (unknown) (unknown) AST 23 (14-36) (units (unknown) date) IU/L unknown) (unknown) (no (unknown) (unknown) Acetaminophen (units ( unknown) date) (Acetaminophen 325 unknown) Mg Tablet) 650 mg PO NOW ONE (unknown) (no (unknown) (unknown) Activity (units (unkno wn) date) Restrictions/Additi unknown) onal Instructions: (unknown) (no (unknown) (unknown) Admin: 06/03/22 (units (unknown) date) 11:05 Dose: 1,000 unknown) mls/hr (unknown) (no (unknown) (unknown) Age/Sex: 66 / F (units (unknown) date) unknown) (unknown) (no (unknown) (unknown) Albumin (3.5-5.0) (units (unknown) date) g/dL unknown) (unknown) (no (unknown) (unknown) Albumin 4.3 (units (un known) date) (3.5-5.0) g/dL unknown) (unknown) (no (unknown) (unknown) Albumin/Globulin (units (unknown) date) Ratio (1.0-2.8) unknown) (unknown) (no (unknown) (unknown) Albumin/Globulin (units (unknown) date) Ratio 1.6 (1.0-2.8) unknown) (unknown) (no (unknown) (unknown) Alkaline (units (unkno wn) date) Phosphatase unknown) (38-126) U/L (unknown) (no (unknown) (unknown) Alkaline (units (unkno wn) date) Phosphatase 78 unknown) (38-126) U/L (unknown) (no (unknown) (unknown) Allergies (units (unkn own) date) unknown) (unknown) (no (unknown) (unknown) Allergy/AdvReac (units (unknown) date) Type Severity unknown) Reaction Status Date / Time (unknown) (no (unknown) (unknown) Anxiety (units (unkno wn) date) unknown) (unknown) (no (unknown) (unknown) Attestation: I (units (unknown) date) reviewed the unknown) patient's lab results. (unknown) (no (unknown) (unknown) Auscultation: (units ( unknown) date) clear to unknown) auscultation bilaterally (unknown) (no (unknown) (unknown) BUN (7-17) mg/dL (units (unknown) date) unknown) (unknown) (no (unknown) (unknown) BUN 11 (7-17) (units ( unknown) date) mg/dL unknown) (unknown) (no (unknown) (unknown) BUN/Creatinine (units (unknown) date) Ratio (6-22) unknown) (unknown) (no (unknown) (unknown) BUN/Creatinine (units (unknown) date) Ratio 12.8 (6-22) unknown) (unknown) (no (unknown) (unknown) Baso # (Auto) (units ( unknown) date) (0-100) /uL unknown) (unknown) (no (unknown) (unknown) Baso # (Auto) 0 (units (unknown) date) (0-100) /uL unknown) (unknown) (no (unknown) (unknown) Baso % (Auto) (units ( unknown) date) (0-2) % unknown) (unknown) (no (unknown) (unknown) Baso % (Auto) 0.4 (units (unknown) date) (0-2) % unknown) (unknown) (no (unknown) (unknown) Bedside Urine (units ( unknown) date) Bilirubin - unknown) Negative (unknown) (no (unknown) (unknown) Bedside Urine (units ( unknown) date) Glucose Negative unknown) (unknown) (no (unknown) (unknown) Bedside Urine (units ( unknown) date) Ketone - Negative unknown) (unknown) (no (unknown) (unknown) Bedside Urine (units ( unknown) date) Leukocytes - unknown) Negative (unknown) (no (unknown) (unknown) Bedside Urine (units ( unknown) date) Nitrite - Negative unknown) (unknown) (no (unknown) (unknown) Bedside Urine (units ( unknown) date) Occult Blood - unknown) Negative (unknown) (no (unknown) (unknown) Bedside Urine (units ( unknown) date) Protein +/- 15 unknown) (unknown) (no (unknown) (unknown) Bedside Urine (units ( unknown) date) Urobilinogen - unknown) Negative (unknown) (no (unknown) (unknown) Bedside Urine pH 7 (units (unknown) date) unknown) (unknown) (no (unknown) (unknown) Blood Pressure (units (unknown) date) 132/79 06/03/22 unknown) 09:09 (unknown) (no (unknown) (unknown) Blood Pressure (units (unknown) date) 142/74 H unknown) (unknown) (no (unknown) (unknown) Blood Pressure (units (unknown) date) 143/67 H 130/72 unknown) (unknown) (no (unknown) (unknown) CK-MB (CK-2) Rel (units (unknown) date) Index TNP unknown) (unknown) (no (unknown) (unknown) CK-MB (CK-2) Rel (units (unknown) date) Index unknown) (unknown) (no (unknown) (unknown) CK-MB (CK-2) TNP (units (unknown) date) unknown) (unknown) (no (unknown) (unknown) CK-MB (CK-2) (units (u nknown) date) unknown) (unknown) (no (unknown) (unknown) Calcium (8.4-10.2) (units (unknown) date) mg/dL unknown) (unknown) (no (unknown) (unknown) Calcium 9.3 (units (un known) date) (8.4-10.2) mg/dL unknown) (unknown) (no (unknown) (unknown) Carbon Dioxide (units (unknown) date) (22-32) mmol/L unknown) (unknown) (no (unknown) (unknown) Carbon Dioxide 27 (units (unknown) date) (22-32) mmol/L unknown) (unknown) (no (unknown) (unknown) Cardio (units (unkno wn) date) unknown) (unknown) (no (unknown) (unknown) Chief complaint: (units (unknown) date) Nausea/Vomiting/Argenis unknown) rrhea (unknown) (no (unknown) (unknown) Chloride (98-107) (units (unknown) date) mmol/L unknown) (unknown) (no (unknown) (unknown) Chloride 100 (units (u nknown) date) (98-107) mmol/L unknown) (unknown) (no (unknown) (unknown) Clinical (units (unkno wn) date) Impression: unknown) (unknown) (no (unknown) (unknown) Colitis, (units (unkno wn) date) nonspecific unknown) (unknown) (no (unknown) (unknown) Complete Blood (units (unknown) date) Count AUTO DIFF unknown) Stat (unknown) (no (unknown) (unknown) Comprehensive (units ( unknown) date) Metabolic Panel unknown) Stat (unknown) (no (unknown) (unknown) Const (units (unkno wn) date) unknown) (unknown) (no (unknown) (unknown) Constitutional (units (unknown) date) unknown) (unknown) (no (unknown) (unknown) Constitutional: (units (unknown) date) Reports system unknown) reviewed and no additional complaints, except as (unknown) (no (unknown) (unknown) Course (units (unkno wn) date) unknown) (unknown) (no (unknown) (unknown) Creatinine (units (unk nown) date) (0.52-1.04) mg/dL unknown) (unknown) (no (unknown) (unknown) Creatinine 0.86 (units (unknown) date) (0.52-1.04) mg/dL unknown) (unknown) (no (unknown) (unknown) : 1955 (units (unknown) date) Acct:[id number] unknown) (unknown) (no (unknown) (unknown) Date of Service: (units (unknown) date) 06/03/22 unknown) (unknown) (no (unknown) (unknown) Departure (units (unkn own) date) unknown) (unknown) (no (unknown) (unknown) Depression (units (unk nown) date) unknown) (unknown) (no (unknown) (unknown) Discharge Plan (units (unknown) date) unknown) (unknown) (no (unknown) (unknown) Discontinued (units (u nknown) date) Medications unknown) (unknown) (no (unknown) (unknown) Documented By: KB (units (unknown) date) unknown) (unknown) (no (unknown) (unknown) Documented By: MLM (units (unknown) date) unknown) (unknown) (no (unknown) (unknown) ED Orders (units (unkn own) date) unknown) (unknown) (no (unknown) (unknown) ER Physician: (units ( unknown) date) Rene Brooks D.O. unknown) (unknown) (no (unknown) (unknown) Easy bruisability (units (unknown) date) unknown) (unknown) (no (unknown) (unknown) Effort + (units (unkno wn) date) Inspection: normal unknown) respiratory effort (unknown) (no (unknown) (unknown) Emergency Report (units (unknown) date) unknown) (unknown) (no (unknown) (unknown) Eos # (Auto) (units (u nknown) date) (0-450) /uL unknown) (unknown) (no (unknown) (unknown) Eos # (Auto) 100 (units (unknown) date) (0-450) /uL unknown) (unknown) (no (unknown) (unknown) Eos % (Auto) (2-4) (units (unknown) date) % unknown) (unknown) (no (unknown) (unknown) Eos % (Auto) 1.7 L (units (unknown) date) (2-4) % unknown) (unknown) (no (unknown) (unknown) Esterase (units (unkno wn) date) unknown) (unknown) (no (unknown) (unknown) Estimated GFR > 60 (units (unknown) date) (>60) mL/min unknown) (unknown) (no (unknown) (unknown) Estimated GFR (units ( unknown) date) (>60) mL/min unknown) (unknown) (no (unknown) (unknown) Exam (units (unkno wn) date) unknown) (unknown) (no (unknown) (unknown) Fibromyalgia (units (u nknown) date) unknown) (unknown) (no (unknown) (unknown) GI (units (unkno wn) date) unknown) (unknown) (no (unknown) (unknown) Gastrointestinal (units (unknown) date) unknown) (unknown) (no (unknown) (unknown) Gastrointestinal: (units (unknown) date) Reports system unknown) reviewed and no additional complaints, except (unknown) (no (unknown) (unknown) General (units (unkno wn) date) unknown) (unknown) (no (unknown) (unknown) General: (units (unkno wn) date) cooperative, unknown) comfortable and No ill appearing (unknown) (no (unknown) (unknown) General: no rashes (units (unknown) date) or lesions noted unknown) (unknown) (no (unknown) (unknown) General: patient (units (unknown) date) alert, patient unknown) awake and moves all extremities (unknown) (no (unknown) (unknown) Genitourinary (units ( unknown) date) unknown) (unknown) (no (unknown) (unknown) Genitourinary: (units (unknown) date) Reports system unknown) reviewed and no additional complaints, except as (unknown) (no (unknown) (unknown) Globulin (1.7-4.1) (units (unknown) date) g/dL unknown) (unknown) (no (unknown) (unknown) Globulin 2.7 (units (u nknown) date) (1.7-4.1) g/dL unknown) (unknown) (no (unknown) (unknown) Glucose (80-110) (units (unknown) date) mg/dL unknown) (unknown) (no (unknown) (unknown) Glucose 104 (units (un known) date) (80-110) mg/dL unknown) (unknown) (no (unknown) (unknown) HENMT (units (unkno wn) date) unknown) (unknown) (no (unknown) (unknown) HLD (units (unkno wn) date) (hyperlipidemia) unknown) (unknown) (no (unknown) (unknown) HPI - (units (unkno wn) date) Nausea/Vomiting/Argenis unknown) rrhea (unknown) (no (unknown) (unknown) HPI Narrative: (units (unknown) date) unknown) (unknown) (no (unknown) (unknown) Hct (36-46) % (units ( unknown) date) unknown) (unknown) (no (unknown) (unknown) Hct 35.7 L (36-46) (units (unknown) date) % unknown) (unknown) (no (unknown) (unknown) Head: normal to (units (unknown) date) inspection and unknown) normocephalic (unknown) (no (unknown) (unknown) Hematologic/Lympha (units (unknown) date) tic unknown) (unknown) (no (unknown) (unknown) Hgb (12.0-16.0) (units (unknown) date) g/dL unknown) (unknown) (no (unknown) (unknown) Hgb 11.7 L (units (unk nown) date) (12.0-16.0) g/dL unknown) (unknown) (no (unknown) (unknown) History of Present (units (unknown) date) Illness unknown) (unknown) (no (unknown) (unknown) History of (units (unk nown) date) arthroplasty of unknown) right knee (-2003) (unknown) (no (unknown) (unknown) History of ear (units (unknown) date) surgery unknown) (unknown) (no (unknown) (unknown) History of lumbar (units (unknown) date) spinal fusion unknown) (03/2019) (unknown) (no (unknown) (unknown) History of nasal (units (unknown) date) surgery unknown) (unknown) (no (unknown) (unknown) History of (units (unk nown) date) revision of total unknown) replacement of left knee joint (05/2008) (unknown) (no (unknown) (unknown) History of (units (unk nown) date) revision of total unknown) replacement of right knee joint () (unknown) (no (unknown) (unknown) Home Medications (units (unknown) date) unknown) (unknown) (no (unknown) (unknown) Hx of arthroscopy (units (unknown) date) of right knee unknown) (unknown) (no (unknown) (unknown) Hx of laminectomy (units (unknown) date) () unknown) (unknown) (no (unknown) (unknown) Hx of repair of (units (unknown) date) right rotator cuff unknown) (unknown) (no (unknown) (unknown) I recommend that (units (unknown) date) you continue to unknown) take all of your medications as directed. Keep (unknown) (no (unknown) (unknown) 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) unknown) (unknown) (no (unknown) (unknown) Initial Vital (units ( unknown) date) Signs unknown) (unknown) (no (unknown) (unknown) Initial Vital (units ( unknown) date) Signs: unknown) (unknown) (no (unknown) (unknown) Inspection: normal (units (unknown) date) to inspection unknown) (unknown) (no (unknown) (unknown) Instructions: DI (units (unknown) date) for Vomiting -- unknown) Adult (unknown) (no (unknown) (unknown) Integumentary/[place] (units (unknown) date) sts unknown) (unknown) (no (unknown) (unknown) Iodinated Contrast (units (unknown) date) Media Allergy Mild unknown) Rash Verified 12/17/21 12:14 (unknown) (no (unknown) (unknown) [facility] (units (unknown) date) [address] unknown) [place] [address] (unknown) (no (unknown) (unknown) Lab Data (units (unkno wn) date) unknown) (unknown) (no (unknown) (unknown) Lab Results (units (un known) date) unknown) (unknown) (no (unknown) (unknown) Label Comments: (units (unknown) date) unknown) (unknown) (no (unknown) (unknown) Labs: (units (unkno wn) date) unknown) (unknown) (no (unknown) (unknown) Last Admin: (units (un known) date) 06/03/22 09:32 unknown) Dose: 4 mg (unknown) (no (unknown) (unknown) Last Admin: (units (un known) date) 06/03/22 11:07 unknown) Dose: 650 mg (unknown) (no (unknown) (unknown) Last Infusion: (units (unknown) date) 06/03/22 12:19 unknown) Dose: 0 mls/hr (unknown) (no (unknown) (unknown) Limitations: no (units (unknown) date) limitations unknown) (unknown) (no (unknown) (unknown) Lipase (23-300) (units (unknown) date) U/L unknown) (unknown) (no (unknown) (unknown) Lipase 56 (23-300) (units (unknown) date) U/L unknown) (unknown) (no (unknown) (unknown) Lipase Stat (units (un known) date) unknown) (unknown) (no (unknown) (unknown) Loose left total (units (unknown) date) knee arthroplasty unknown) (2003) (unknown) (no (unknown) (unknown) Lymph # (Auto) (units (unknown) date) (2717-6918) /uL unknown) (unknown) (no (unknown) (unknown) Lymph # (Auto) (units (unknown) date) 1400 (0349-9200) unknown) /uL (unknown) (no (unknown) (unknown) Lymph % (Auto) (units (unknown) date) (25-40) % unknown) (unknown) (no (unknown) (unknown) Lymph % (Auto) (units (unknown) date) 16.6 L (25-40) % unknown) (unknown) (no (unknown) (unknown) MCH (26-34) PG (units (unknown) date) unknown) (unknown) (no (unknown) (unknown) MCH 27.0 (26-34) (units (unknown) date) PG unknown) (unknown) (no (unknown) (unknown) MCHC (30-36) % (units (unknown) date) unknown) (unknown) (no (unknown) (unknown) MCHC 32.9 (30-36) (units (unknown) date) % unknown) (unknown) (no (unknown) (unknown) MCV (80-100) fL (units (unknown) date) unknown) (unknown) (no (unknown) (unknown) MCV 82.3 (80-100) (units (unknown) date) fL unknown) (unknown) (no (unknown) (unknown) MDM - (units (unkno wn) date) Nausea/Vomiting/Argenis unknown) rrhea (unknown) (no (unknown) (unknown) MDM Narrative (units ( unknown) date) unknown) (unknown) (no (unknown) (unknown) MRSA (methicillin (units (unknown) date) resistant unknown) Staphylococcus aureus) (unknown) (no (unknown) (unknown) Allison Vasquez, (units (unknown) date) PA-C [Primary Care unknown) Provider] (unknown) (no (unknown) (unknown) Medical History (units (unknown) date) (Reviewed 06/03/22 unknown) @ 19:13 by Rene Brooks DO) (unknown) (no (unknown) (unknown) Medical decision (units (unknown) date) making narrative: unknown) (unknown) (no (unknown) (unknown) Medication (units (unk nown) date) Instructions unknown) Recorded Confirmed (unknown) (no (unknown) (unknown) Medication (units (unk nown) date) Instructions unknown) Recorded (unknown) (no (unknown) (unknown) Mode of arrival: (units (unknown) date) Ambulatory unknown) (unknown) (no (unknown) (unknown) [place] # (Auto) (units ( unknown) date) (0-900) /uL unknown) (unknown) (no (unknown) (unknown) [place] # (Auto) 700 (units (unknown) date) (0-900) /uL unknown) (unknown) (no (unknown) (unknown) [place] % (Auto) (units ( unknown) date) (3-14) % unknown) (unknown) (no (unknown) (unknown) [place] % (Auto) 8.4 (units (unknown) date) (3-14) % unknown) (unknown) (no (unknown) (unknown) Musculoskeletal (units (unknown) date) unknown) (unknown) (no (unknown) (unknown) Musculoskeletal: (units (unknown) date) Reports system unknown) reviewed and no additional complaints, except as (unknown) (no (unknown) (unknown) Neuro (units (unkno wn) date) unknown) (unknown) (no (unknown) (unknown) Neut # (Auto) (units ( unknown) date) (0075-7421) /uL unknown) (unknown) (no (unknown) (unknown) Neut # (Auto) 6000 (units (unknown) date) (8224-4697) /uL unknown) (unknown) (no (unknown) (unknown) Neut % (Auto) (units ( unknown) date) (50-75) % unknown) (unknown) (no (unknown) (unknown) Neut % (Auto) 72.9 (units (unknown) date) (50-75) % unknown) (unknown) (no (unknown) (unknown) New (units (unkno wn) date) unknown) (unknown) (no (unknown) (unknown) No Action (units (unkn own) date) unknown) (unknown) (no (unknown) (unknown) On Anticoagulants: (units (unknown) date) No unknown) (unknown) (no (unknown) (unknown) Ondansetron HCl (units (unknown) date) (Ondansetron 4 Mg unknown) Odt) 4 mg PO NOW PRN (unknown) (no (unknown) (unknown) Ondansetron HCl (units (unknown) date) (Ondansetron 4 Mg/2 unknown) Ml Inj) 4 mg IV NOW PRN (unknown) (no (unknown) (unknown) Ordered: (units (unkno wn) date) unknown) (unknown) (no (unknown) (unknown) Orders (units (unkno wn) date) unknown) (unknown) (no (unknown) (unknown) Oxygen Delivery (units (unknown) date) Method 06/03/22 unknown) 09:09 (unknown) (no (unknown) (unknown) PRN Reason: Nausea (units (unknown) date) And Vomiting unknown) (unknown) (no (unknown) (unknown) PTSD (units (unkno wn) date) (post-traumatic unknown) stress disorder) (unknown) (no (unknown) (unknown) Palpation: soft (units (unknown) date) and No tender unknown) (unknown) (no (unknown) (unknown) Patient (units (unkno wn) date) Disposition: Home unknown) (unknown) (no (unknown) (unknown) Patient History (units (unknown) date) unknown) (unknown) (no (unknown) (unknown) Patient is (units (unk nown) date) well-appearing. Has unknown) unremarkable vital signs and unremarkable labs (unknown) (no (unknown) (unknown) Patient: (units (unkno wn) date) Laly Miranda unknown) MR#: [id number] (unknown) (no (unknown) (unknown) Plt Count (units (unkn own) date) (150-400) X103/uL unknown) (unknown) (no (unknown) (unknown) Plt Count 282 (units ( unknown) date) (150-400) X103/uL unknown) (unknown) (no (unknown) (unknown) Potassium (units (unkn own) date) (3.4-5.1) mmol/L unknown) (unknown) (no (unknown) (unknown) Potassium 4.1 (units ( unknown) date) (3.4-5.1) mmol/L unknown) (unknown) (no (unknown) (unknown) Prescriptions: (units (unknown) date) unknown) (unknown) (no (unknown) (unknown) Previous Rx's (units ( unknown) date) unknown) (unknown) (no (unknown) (unknown) Pulse Oximetry 100 (units (unknown) date) 06/03/22 09:09 unknown) (unknown) (no (unknown) (unknown) Pulse Oximetry 96 (units (unknown) date) unknown) (unknown) (no (unknown) (unknown) Pulse Oximetry 97 (units (unknown) date) unknown) (unknown) (no (unknown) (unknown) Pulse Rate 79 (units ( unknown) date) unknown) (unknown) (no (unknown) (unknown) Pulse Rate 85 (units ( unknown) date) 06/03/22 09:09 unknown) (unknown) (no (unknown) (unknown) Pulse Rate 87 (units ( unknown) date) unknown) (unknown) (no (unknown) (unknown) RBC (4.0-5.2) (units ( unknown) date) X106/uL unknown) (unknown) (no (unknown) (unknown) RBC 4.34 (4.0-5.2) (units (unknown) date) X106/uL unknown) (unknown) (no (unknown) (unknown) RDW (11.6-14.8) % (units (unknown) date) unknown) (unknown) (no (unknown) (unknown) RDW 16.3 H (units (unk nown) date) (11.6-14.8) % unknown) (unknown) (no (unknown) (unknown) Rate: regular rate (units (unknown) date) unknown) (unknown) (no (unknown) (unknown) Referrals: (units (unk nown) date) unknown) (unknown) (no (unknown) (unknown) Related Data (units (u nknown) date) unknown) (unknown) (no (unknown) (unknown) Resp (units (unkno wn) date) unknown) (unknown) (no (unknown) (unknown) Respiratory Rate (units (unknown) date) 18 06/03/22 09:09 unknown) (unknown) (no (unknown) (unknown) Return to the (units ( unknown) date) emergency unknown) department for new symptoms (unknown) (no (unknown) (unknown) Review of Systems (units (unknown) date) unknown) (unknown) (no (unknown) (unknown) Rhythm: regular (units (unknown) date) rhythm unknown) (unknown) (no (unknown) (unknown) Rx Instructions: (units (unknown) date) unknown) (unknown) (no (unknown) (unknown) Sciatica (units (unkno wn) date) unknown) (unknown) (no (unknown) (unknown) Signed By: (units (unk nown) date) unknown) (unknown) (no (unknown) (unknown) Skin (units (unkno wn) date) unknown) (unknown) (no (unknown) (unknown) Skin/Breast: (units (u nknown) date) Reports system unknown) reviewed and no additional complaints, except as (unknown) (no (unknown) (unknown) Smoking Status: (units (unknown) date) Former smoker unknown) (unknown) (no (unknown) (unknown) Social History (units (unknown) date) (Reviewed 06/03/22 unknown) @ 19:13 by Rene Brooks DO) (unknown) (no (unknown) (unknown) Sodium (137-145) (units (unknown) date) mmol/L unknown) (unknown) (no (unknown) (unknown) Sodium 137 (units (unk nown) date) (137-145) mmol/L unknown) (unknown) (no (unknown) (unknown) Sodium Chloride (units (unknown) date) (Normal Saline unknown) 0.9%) 1,000 mls @ 1,000 mls/hr IV BOLUS ONE (unknown) (no (unknown) (unknown) Source: patient (units (unknown) date) unknown) (unknown) (no (unknown) (unknown) Spinal stenosis (units (unknown) date) unknown) (unknown) (no (unknown) (unknown) Stand Alone Forms: (units (unknown) date) Patient Portal/API unknown) (unknown) (no (unknown) (unknown) Stated complaint: (units (unknown) date) throwing up since unknown) (unknown) (no (unknown) (unknown) Stop: 06/03/22 (units (unknown) date) 11:04 unknown) (unknown) (no (unknown) (unknown) Stop: 06/03/22 (units (unknown) date) 11:40 unknown) (unknown) (no (unknown) (unknown) Substance Use (units ( unknown) date) Type: marijuana unknown) (unknown) (no (unknown) (unknown) Surgical History (units (unknown) date) (Reviewed 12/24/21 unknown) @ 01:23 by Desean Jiménez MD) (unknown) (no (unknown) (unknown) Temperature 98 F (units (unknown) date) 06/03/22 09:09 unknown) (unknown) (no (unknown) (unknown) Time Seen by (units (u nknown) date) Provider: 06/03/22 unknown) 10:36 (unknown) (no (unknown) (unknown) Total Bilirubin (units (unknown) date) (0.2-1.3) mg/dL unknown) (unknown) (no (unknown) (unknown) Total Bilirubin (units (unknown) date) 0.4 (0.2-1.3) mg/dL unknown) (unknown) (no (unknown) (unknown) Total Creatine (units (unknown) date) Kinase (30-135) U/L unknown) (unknown) (no (unknown) (unknown) Total Creatine (units (unknown) date) Kinase 51 (30-135) unknown) U/L (unknown) (no (unknown) (unknown) Total Protein (units ( unknown) date) (6.3-8.2) g/dL unknown) (unknown) (no (unknown) (unknown) Total Protein 7.0 (units (unknown) date) (6.3-8.2) g/dL unknown) (unknown) (no (unknown) (unknown) Troponin + CK (units ( unknown) date) Cardiac Panel Stat unknown) (unknown) (no (unknown) (unknown) Troponin I < 0.012 (units (unknown) date) (0.01-0.034) ng/mL unknown) (unknown) (no (unknown) (unknown) Troponin I (units (unk nown) date) (0.01-0.034) ng/mL unknown) (unknown) (no (unknown) (unknown) Ur Culture (units (unk nown) date) Indicated? Cult not unknown) indicated (unknown) (no (unknown) (unknown) Ur Culture (units (unk nown) date) Indicated? unknown) (unknown) (no (unknown) (unknown) Ur Squamous Epith (units (unknown) date) Cells (0-5/HPF) unknown) (unknown) (no (unknown) (unknown) Ur Squamous Epith (units (unknown) date) Cells 0-1 /hpf unknown) (0-5/HPF) (unknown) (no (unknown) (unknown) Urine Bacteria (units (unknown) date) (None) unknown) (unknown) (no (unknown) (unknown) Urine Bacteria Few (units (unknown) date) (2-10) H (None) unknown) (unknown) (no (unknown) (unknown) Urine Culture Stat (units (unknown) date) unknown) (unknown) (no (unknown) (unknown) Urine Dip (units (unkn own) date) unknown) (unknown) (no (unknown) (unknown) Urine Mucus (units (un known) date) (Negative) unknown) (unknown) (no (unknown) (unknown) Urine Mucus 1+ H (units (unknown) date) (Negative) unknown) (unknown) (no (unknown) (unknown) Urine RBC (units (unkn own) date) (0-5/HPF) unknown) (unknown) (no (unknown) (unknown) Urine RBC None (units (unknown) date) seen (0-5/HPF) unknown) (unknown) (no (unknown) (unknown) Urine Specific (units (unknown) date) [place] 1.015 unknown) (unknown) (no (unknown) (unknown) Urine WBC (units (unkn own) date) (0-5/HPF) unknown) (unknown) (no (unknown) (unknown) Urine WBC 1-5/hpf (units (unknown) date) (0-5/HPF) unknown) (unknown) (no (unknown) (unknown) Vital Signs - 8 hr (units (unknown) date) unknown) (unknown) (no (unknown) (unknown) Vital Signs (units (un known) date) unknown) (unknown) (no (unknown) (unknown) Vital signs: (units (u nknown) date) unknown) (unknown) (no (unknown) (unknown) Vomiting (units (unkno wn) date) unknown) (unknown) (no (unknown) (unknown) WBC (4.5-11.0) (units (unknown) date) X103/uL unknown) (unknown) (no (unknown) (unknown) WBC 8.2 (4.5-11.0) (units (unknown) date) X103/uL unknown) (unknown) (no (unknown) (unknown) [Embedded Image (units (unknown) date) Not Available] unknown) (unknown) (no (unknown) (unknown) acetaminophen 500 (units (unknown) date) mg Capsule unknown) (unknown) (no (unknown) (unknown) acetaminophen 500 (units (unknown) date) mg capsule 1,000 mg unknown) PO Q6H PRN Pain 12/07/21 12/23/21 (unknown) (no (unknown) (unknown) alcohol intake (units (unknown) date) frequency: unknown) holidays/special occasions only (unknown) (no (unknown) (unknown) alcohol intake: (units (unknown) date) former unknown) (unknown) (no (unknown) (unknown) and instructions (units (unknown) date) to follow up with unknown) primary provider. She expressed (unknown) (no (unknown) (unknown) and unremarkable (units (unknown) date) exam. I do suspect unknown) that anxiety does play a role in her (unknown) (no (unknown) (unknown) as documented (units ( unknown) date) unknown) (unknown) (no (unknown) (unknown) at home she states (units (unknown) date) that it does take unknown) care of her for short period of time. She (unknown) (no (unknown) (unknown) budesonide 3 mg 9 (units (unknown) date) mg PO QAM 12/07/21 unknown) 12/23/21 (unknown) (no (unknown) (unknown) budesonide 3 mg (units (unknown) date) Capsule,Delayed,Ext unknown) end.Release (unknown) (no (unknown) (unknown) bupropion HCl 300 (units (unknown) date) mg 24 hr tablet, unknown) 150 mg PO QAM 12/07/21 12/23/21 (unknown) (no (unknown) (unknown) bupropion HCl 300 (units (unknown) date) mg Tablet Extended unknown) Release 24 Hr (unknown) (no (unknown) (unknown) caps (units (unkno wn) date) unknown) (unknown) (no (unknown) (unknown) capsule,delayed (units (unknown) date) release unknown) (unknown) (no (unknown) (unknown) capsule,delayed,ex (units (unknown) date) tended release unknown) (unknown) (no (unknown) (unknown) department without (units (unknown) date) issue. Will unknown) discharge patient home with return precautions (unknown) (no (unknown) (unknown) diphenhydramine (units (unknown) date) HCl 25 mg capsule unknown) 50 - 100 mg PO BEDTIME PRN Sleep 12/10/21 (unknown) (no (unknown) (unknown) diphenhydramine (units (unknown) date) HCl [Benadryl] 25 unknown) mg Capsule (unknown) (no (unknown) (unknown) documented (units (unk nown) date) unknown) (unknown) (no (unknown) (unknown) docusate sodium (units (unknown) date) 100 mg Capsule unknown) (unknown) (no (unknown) (unknown) docusate sodium (units (unknown) date) 100 mg capsule 100 unknown) mg PO BID PRN constipation #60 12/20/21 (unknown) (no (unknown) (unknown) escitalopram (units (u nknown) date) oxalate 20 mg unknown) tablet 20 mg PO DAILY 12/07/21 12/23/21 (unknown) (no (unknown) (unknown) escitalopram (units (u nknown) date) oxalate [Lexapro] unknown) 20 mg Tablet (unknown) (no (unknown) (unknown) esomeprazole (units (u nknown) date) magnesium 20 mg 40 unknown) mg PO DAILY 12/07/21 12/17/21 (unknown) (no (unknown) (unknown) esomeprazole (units (u nknown) date) magnesium 20 mg unknown) Capsule,Delayed Release(Dr/Ec) (unknown) (no (unknown) (unknown) extended release (units (unknown) date) unknown) (unknown) (no (unknown) (unknown) gabapentin 400 mg (units (unknown) date) Capsule unknown) (unknown) (no (unknown) (unknown) gabapentin 400 mg (units (unknown) date) capsule 400 mg PO unknown) SEEINSTR 12/07/21 12/23/21 (unknown) (no (unknown) (unknown) household members: (units (unknown) date) none unknown) (unknown) (no (unknown) (unknown) hydromorphone 2 mg (units (unknown) date) Tablet unknown) (unknown) (no (unknown) (unknown) hydromorphone 2 mg (units (unknown) date) tablet 2 mg PO Q3H unknown) PRN pain, severe #30 12/20/21 (unknown) (no (unknown) (unknown) hydroxyzine (units (un known) date) pamoate 25 mg unknown) Capsule (unknown) (no (unknown) (unknown) hydroxyzine (units (un known) date) pamoate 25 mg unknown) capsule 25 mg PO Q4HR PRN Muscle Spasm 12/20/21 (unknown) (no (unknown) (unknown) is been throwing (units (unknown) date) up for the past unknown) couple days. She does have nausea medication (unknown) (no (unknown) (unknown) is not had any (units (unknown) date) nausea medicine unknown) today. No change in bowel habits. No urinary (unknown) (no (unknown) (unknown) methocarbamol 500 (units (unknown) date) mg Tablet unknown) (unknown) (no (unknown) (unknown) methocarbamol 500 (units (unknown) date) mg tablet 500 mg PO unknown) TID PRN Muscle Spasm #60 12/20/21 (unknown) (no (unknown) (unknown) mg tablet (units (unkn own) date) unknown) (unknown) (no (unknown) (unknown) of this which I (units (unknown) date) did sent to the unknown) pharmacy of her choice. No indication for (unknown) (no (unknown) (unknown) oxycodone 5 mg (units (unknown) date) tablet 5 mg PO Q4H unknown) PRN pain, moderate #60 12/20/21 (unknown) (no (unknown) (unknown) oxycodone 5 mg (units (unknown) date) tablet unknown) (unknown) (no (unknown) (unknown) oxycodone-acetamin (units (unknown) date) ophen 10 mg-325 1 unknown) tab PO BID-TID 12/07/21 12/23/21 (unknown) (no (unknown) (unknown) oxycodone-acetamin (units (unknown) date) ophen 10-325 mg unknown) Tablet (unknown) (no (unknown) (unknown) presenting (units (unk nown) date) symptoms today. She unknown) does have Phenergan at home but needs a refill (unknown) (no (unknown) (unknown) promethazine 25 mg (units (unknown) date) Tablet unknown) (unknown) (no (unknown) (unknown) promethazine 25 mg (units (unknown) date) tablet 25 mg PO unknown) Q4-6H PRN Nausea 12/07/21 12/23/21 (unknown) (no (unknown) (unknown) promethazine 25 mg (units (unknown) date) tablet 25 mg PO unknown) Q4-6H PRN nausea and 06/03/22 (unknown) (no (unknown) (unknown) promethazine 25 mg (units (unknown) date) tablet unknown) (unknown) (no (unknown) (unknown) radiologic studies (units (unknown) date) feel that an acute unknown) intra-abdominal surgical pathology is (unknown) (no (unknown) (unknown) rifampin Allergy (units (unknown) date) Mild Rash Verified unknown) 12/17/21 12:14 (unknown) (no (unknown) (unknown) simvastatin 40 mg (units (unknown) date) Tablet unknown) (unknown) (no (unknown) (unknown) simvastatin 40 mg (units (unknown) date) tablet 40 mg PO unknown) BEDTIME 12/07/21 12/23/21 (unknown) (no (unknown) (unknown) symptoms. No (units (u nknown) date) fevers. She was unknown) concerned about [facility]. (unknown) (no (unknown) (unknown) tabs (units (unkno wn) date) unknown) (unknown) (no (unknown) (unknown) trazodone 150 mg (units (unknown) date) Tablet unknown) (unknown) (no (unknown) (unknown) trazodone 150 mg (units (unknown) date) tablet 150 mg PO unknown) BEDTIME 12/07/21 12/23/21 (unknown) (no (unknown) (unknown) understanding. (units (unknown) date) unknown) (unknown) (no (unknown) (unknown) unlikely. No (units (u nknown) date) indication for unknown) antibiotics. Patient ambulate around the emergency (unknown) (no (unknown) (unknown) valacyclovir 500 (units (unknown) date) mg Tablet unknown) (unknown) (no (unknown) (unknown) valacyclovir 500 (units (unknown) date) mg tablet 500 mg PO unknown) BID 12/07/21 12/23/21 (unknown) (no (unknown) (unknown) vancomycin Allergy (units (unknown) date) Mild Rash Verified unknown) 12/17/21 12:14 (unknown) (no (unknown) (unknown) vomiting #14 tabs (units (unknown) date) unknown) (unknown) (no (unknown) (unknown) your appointment (units (unknown) date) that you have unknown) scheduled on Friday with your primary doctor. (unknown) (no (unknown) (unknown) zolpidem 10 mg (units (unknown) date) tablet (Ambien) 10 unknown) mg PO BEDTIME 12/07/21 12/17/21 (unknown) (no (unknown) (unknown) zolpidem 10 mg (units (unknown) date) tablet 10 mg PO unknown) BEDTIME PRN insomnia #14 12/20/21 (unknown) (no (unknown) (unknown) zolpidem 10 mg (units (unknown) date) tablet unknown) (unknown) (no (unknown) (unknown) zolpidem [Ambien] (units (unknown) date) 10 mg Tablet unknown) Result panel 181 (unknown) (no (unknown) (unknown) (no value) (units (unk nown) date) unknown) (unknown) (no (unknown) (unknown) 20,000 - 30,000 cfu/ml (unknown) date) (unknown) (no (unknown) (unknown) 60,000 - 70,000 cfu/ml (unknown) date) (unknown) (no (unknown) (unknown) GNBGram negative (units (unknown) date) bacilli unknown) (unknown) (no (unknown) (unknown) Identification (units (unknown) date) and Sensitivity unknown) to Follow Result panel 182 (unknown) (no (unknown) (unknown) (no value) (units (unk nown) date) unknown) (unknown) (no (unknown) (unknown) >=32 (units (unkno wn) date) unknown) (unknown) (no (unknown) (unknown) >=320 (units (unkno wn) date) unknown) (unknown) (no (unknown) (unknown) <=0.12 (units (unkno wn) date) unknown) (unknown) (no (unknown) (unknown) <=0.25 (units (unkno wn) date) unknown) (unknown) (no (unknown) (unknown) <=0.5 (units (unkno wn) date) unknown) (unknown) (no (unknown) (unknown) <=1 (units (unkno wn) date) unknown) (unknown) (no (unknown) (unknown) <=16 (units (unkno wn) date) unknown) (unknown) (no (unknown) (unknown) <=20 (units (unkno wn) date) unknown) (unknown) (no (unknown) (unknown) <=4 (units (unkno wn) date) unknown) (unknown) (no (unknown) (unknown) 16 (units (unkno wn) date) unknown) (unknown) (no (unknown) (unknown) 2 COLONY TYPES (units (unknown) date) unknown) (unknown) (no (unknown) (unknown) 20,000 - 30,000 cfu/ml (unknown) date) (unknown) (no (unknown) (unknown) 4 (units (unkno wn) date) unknown) (unknown) (no (unknown) (unknown) 60,000 - 70,000 cfu/ml (unknown) date) (unknown) (no (unknown) (unknown) 8 (units (unkno wn) date) unknown) (unknown) (no (unknown) (unknown) ESCCOLEscherichia (units (unknown) date) coli unknown) (unknown) (no (unknown) (unknown) No Further Workup (units (unknown) date) unknown) Social History date description facility 2022-06-03 00:00 Ex-smoker ([facility] Vital Signs date measurement value units 2022-06-03 00:00 BMI 27.4 kg/m2 2022-06-03 00:00 BP_diastolic 74 mmHg 2022-06-03 00:00 BP_systolic 142 mmHg 2022-06-03 00:00 heart_rate 87 /min 2022-06-03 00:00 height_metric 162.56 cm 2022-06-03 00:00 height_standard 64 in 2022-06-03 00:00 o2_saturation 97 % 2022-06-03 00:00 respiration_rate 18 /min 2022-06-03 00:00 temperature_metric 36.67 C 2022-06-03 00:00 temperature_standard 98 F 2022-06-03 00:00 weight_metric 72.57 kg 2022-06-03 00:00 weight_standard 159.99 lb
--- NOTE | 2022-07-31 17:40 | XRAY Report ---
PROCEDURE: Foot 3 View LT INDICATIONS: fall/had 2nd metatarsal surgery 07/12 TECHNIQUE: 3 views of the foot were acquired. COMPARISON: None. FINDINGS: Bones: No fractures or dislocations. No suspicious bony lesions. Small calcaneal spur present. Old healed second metatarsal fracture supported by cortical plate and screw hardware Soft tissues: No suspicious soft tissue calcifications or masses. IMPRESSION: No evidence of acute fracture or hardware failure. Healed second metatarsal fracture Reviewed by: Roshan Jackson MD on 07/31/2022 4:38 PM AKAZEEM Approved by: Roshan Jackson MD on 07/31/2022 4:38 PM AKAZEEM Station ID: [id number]
== END 2022-07-31 18:12 | disposition home or self-care (01) ==
LOC: ED 16:33
DX: M79.672 Pain in left foot (principal)
CPT/HCPCS: 99283

== ENCOUNTER 2022-12-11 09:33 | Emergency (ER) | payer MEDICARE ==
[2022-12-11] MEDS ORDERED: SODIUM CHLORIDE 0.9% 1,000 ML IV STA (10:11)
--- OUTSIDE RECORDS SUMMARY | 2022-12-11 10:11 | EXTERNAL MEDICAL SUMMARY RPT | Continuity of Care Document ---
Author Name Unknown Address [address] [place] [address] Phone Organization [facility] Address [address] [place], [place] [id number] Phone Problems date description facility 2022-11-13 15:55 Vomiting, unspecified [facility]
[2022-12-11 10:24] LABS: BASOPHILS % (AUTO) 0.3 %; EOSINOPHILS # (AUTO) 0.1 10^3/uL (0.0-0.7); EOSINOPHILS % (AUTO) 1.3 %; HCT - HEMATOCRIT 34.1 % (37.0-47.0); HGB - HEMOGLOBIN 10.5 g/dL (12.0-16.0); LYMPHOCYTES # (AUTO) 1.7 10^3/uL (1.5-3.5); LYMPHOCYTES % (AUTO) 21.9 %; MEAN CORPUSCULAR HEMOGLOBIN 25.1 pg (27.0-31.0); MEAN CORPUSCULAR HGB CONC 30.8 g/dL (32.0-36.0); MEAN CORPUSCULAR VOLUME 81.4 fL (81.0-99.0); MEAN PLATELET VOLUME 9.2 fL (7.9-10.8); NEUTROPHILS # (AUTO) 4.8 10^3/uL (1.5-6.6); NEUTROPHILS % (AUTO) 60.6 %; PLT - PLATELET COUNT 284 10^3/uL (130-450); RED BLOOD COUNT 4.19 10^6/uL (4.20-5.40); RED CELL DISTRIBUTION WIDTH 15.1 % (12.0-15.0); WHITE BLOOD COUNT 7.9 x10^3/uL (4.8-10.8)
[2022-12-11 10:39] LABS: ALBUMIN 3.9 g/dL (3.2-5.5); ALBUMIN/GLOBULIN RATIO 1.6 (1.0-2.2); BILIRUBIN,TOTAL 0.3 mg/dL (0.2-1.0); CALCIUM 9.2 mg/dL (8.5-10.3); CREATININE 0.8 mg/dL (0.6-1.3); POTASSIUM 3.6 mmol/L (3.5-4.5); TOTAL PROTEIN 6.4 g/dL (6.4-8.9)
[2022-12-11 11:25] LABS: BILIRUBIN,URINE NEGATIVE (NEGATIVE); GLUCOSE, URINE (UA) NEGATIVE (NEGATIVE); KETONES,URINE (UA) NEGATIVE (NEGATIVE); LEUKOCYTE ESTERASE, URINE NEGATIVE (NEGATIVE); NITRITE,URINE NEGATIVE (NEGATIVE); OCCULT BLOOD,URINE NEGATIVE (NEGATIVE); PROTEIN,URINE NEGATIVE (NEGATIVE); UROBILINOGEN,URINE 0.2 (NORMAL) E.U./dL (NORMAL)
[2022-12-11 11:26] LABS: CLARITY,URINE CLEAR (CLEAR)
--- NOTE | 2022-12-11 12:33 | ED Physician Documentation ---
History of Present Illness - Stated complaint Stated Complaint: DEHYDRATION - Chief complaint Chief Complaint: General - History obtained from History obtained from: Patient - History of Present Illness Timing: Today Pain level max: 0 Pain level now: 0 - Additonal information Additional information: Patient is a 67-year-old female who presents to the emergency department stating that she feels weak and dehydrated. She was recently diagnosed with COVID and started on molnupiravir. She states since that time she has had increased urination. She states she is drinking water but feels like she is dehydrated. Ralph mildly lightheaded earlier today. No hypoxia or respiratory distress. Still has a mild cough but feels that she is improving. No abdominal pain, nausea or vomiting. No head injury. No headache. Review of Systems Constitutional: denies: Fever, Chills Respiratory: reports: Cough GI: denies: Abdominal Pain, Nausea, Vomiting, Diarrhea Skin: denies: Rash Musculoskeletal: denies: Neck pain, Back pain Neurologic: denies: Headache PD PAST MEDICAL HISTORY - Past Medical History Past Medical History: Yes GI: GERD - Past Surgical History Past Surgical History: Yes Ortho: Rotator cuff repair, Spine surgery - Present Medications Home Medications: Ambulatory Orders Medication Instructions Recorded Confirmed Amox/Clav 875/125 [Augmentin 1 tablet PO Q12H 12/11/22 12/11/22 875/125 Tab] Budesonide [Entocort EC] 3 mg PO DAILY 12/11/22 12/11/22 Dicyclomine [Bentyl] 10 mg PO QID 12/11/22 12/11/22 Escitalopram Oxalate 20 mg PO DAILY 12/11/22 12/11/22 Folic Acid 1 mg PO DAILY 12/11/22 12/11/22 Gabapentin 400 mg PO TID 12/11/22 12/11/22 Omeprazole 40 mg PO DAILY 12/11/22 12/11/22 Potassium Chloride 10 meq PO DAILY 12/11/22 12/11/22 Promethazine [Phenergan] 25 mg PO Q6H PRN 12/11/22 12/11/22 Simvastatin [Zocor] 40 mg PO HS 12/11/22 12/11/22 Sucralfate [Carafate] 1 gm PO QID 12/11/22 12/11/22 Trazodone HCl 150 mg PO HS 12/11/22 12/11/22 Zolpidem Tartrate [Ambien] 10 mg PO HS 12/11/22 12/11/22 buPROPion HCL [Wellbutrin Xl] 300 mg PO DAILY 12/11/22 12/11/22 - Allergies Allergies/Adverse Reactions: Allergies Allergy/AdvReac Type Severity Reaction Status Date / Time iodine Allergy Unknown Verified 07/31/22 16:43 rifampin Allergy Unknown Verified 12/11/22 09:47 vancomycin Allergy Unknown Verified 07/31/22 16:43 - Social History Does the pt smoke?: No Smoking Status: Never smoker - Immunizations Immunizations are current?: Yes PD ED PE NORMAL - Vitals Vital signs reviewed: Yes - General General: Alert and oriented X 3, No acute distress - HEENT HEENT: PERRL, Moist mucous membranes, Pharynx benign - Neck Neck: Supple, no meningeal sign - Cardiac Cardiac: RRR - Respiratory Respiratory: No respiratory distress, Clear bilaterally - Derm Derm: Warm and dry - Neuro Neuro: Alert and oriented X 3 - Psych Psych: Normal mood, Normal affect Results - Vitals Vitals: Vital Signs - 24 hr 12/11/22 12/11/22 09:42 12:45 Temperature 36.6 C 36.5 C Heart Rate 84 77 Respiratory 15 16 Rate Blood Pressure 137/100 H 155/87 H O2 Saturation 98 0 L Oxygen O2 Source Room air - Labs Labs: Laboratory Tests 12/11/22 12/11/22 12/11/22 10:19 10:19 10:38 WBC 7.9 RBC 4.19 L Hgb 10.5 L Hct 34.1 L MCV 81.4 MCH 25.1 L MCHC 30.8 L RDW 15.1 H Plt Count 284 MPV 9.2 Neut # (Auto) 4.8 Lymph # (Auto) 1.7 Dent # (Auto) 1.0 Eos # (Auto) 0.1 Baso # (Auto) 0.0 Absolute Nucleated RBC 0.00 Nucleated RBC % 0.0 Sodium 138 Potassium 3.6 Chloride 101 Carbon Dioxide 30 Anion Gap 7.0 BUN 7 Creatinine 0.8 Estimated GFR (MDRD) 72 L Glucose 108 H Calcium 9.2 Total Bilirubin 0.3 AST 13 ALT 6 L Alkaline Phosphatase 68 Total Protein 6.4 Albumin 3.9 Globulin 2.5 Albumin/Globulin Ratio 1.6 Lipase 13 Urine Color LIGHT YELLOW Urine Clarity CLEAR Urine pH 7.0 Ur Specific Connelly <=1.005 Urine Protein NEGATIVE Urine Glucose (UA) NEGATIVE Urine Ketones NEGATIVE Urine Occult Blood NEGATIVE Urine Nitrite NEGATIVE Urine Bilirubin NEGATIVE Urine Urobilinogen 0.2 (NORMAL) Ur Leukocyte Esterase NEGATIVE Ur Microscopic Review NOT INDICATED Urine Culture Comments NOT INDICATED PD Medical Decision Making - ED course Complexity details: reviewed results, re-evaluated patient, considered differential, d/w patient ED course: Patient is very well-appearing, nontoxic. Afebrile. No hypoxia or respiratory distress. She was given IV fluids and feels better. No significant lab abnormalities. Has a mild anemia. Ambulating without difficulty. No focal neurological deficits. Normal gait. All of her follow-up with her doctor for further care. Patient counseled regarding signs and symptoms for which I believe and urgent re-evaluation would be necessary. Patient with good understanding of and agreement to plan and is comfortable going home at this time This document was made in part using voice recognition software. While efforts are made to proofread this document, sound alike and grammatical errors may occur. Departure - Departure Disposition: 01 Home, Self Care Clinical Impression: Dehydration Condition: Good Instructions: ED Dehydration Follow-Up: your,doctor in 1 week [Other] Comments: Please with your doctor for further care. Please return if you worsen. Your laboratory testing does not show any acute abnormalities today. Forms: PCP List Discharge Date/Time: 12/11/22 12:46
[2022-12-11 12:51] VITALS: BP 155/87; O2SAT 0
== END 2022-12-11 12:46 | disposition home or self-care (01) ==
LOC: ED 09:33
DX: E86.0 Dehydration (principal); D64.9 Anemia, unspecified
CPT/HCPCS: 36415; 80053; 81001; 81003; 83690; 85025; 87086; 96360; 96361; 99283